=== PATIENT | female | born 1980 | race African-American/Black ===

== ENCOUNTER 2017-01-02 07:33 | Emergency (ER) | payer SELFPAY ==
[2017-01-02] MEDS ORDERED: KETOROLAC TROMETHAMINE INJ/PF 30 MG/1 ML SDV IV ONE (08:02)
[2017-01-02] MEDS ORDERED: ONDANSETRON HCL INJ/PF 4 MG/2 ML SDV IV ONE (08:02)
[2017-01-02 08:19] LABS: ABSOLUTE EOSINOPHILS # (AUTO) 0.1 10^3/uL (0.0-0.6); ABSOLUTE LYMPHOCYTES (AUTO) 2.4 10^3/uL (0.5-4.7); ABSOLUTE MONOCYTES (AUTO) 0.4 10^3/uL (0.1-1.4); BASOPHILS % (AUTO) 0.6 % (0-2); EOSINOPHILS % (AUTO) 2.1 % (0-6); HEMATOCRIT 38.6 % (36.0-47.0); HEMOGLOBIN 12.8 g/dL (12.0-15.5); HGB HCT DIFFERENCE -0.2; LYMPHOCYTES % (AUTO) 40.3 % (13-45); MEAN CORPUSCULAR HEMOGLOBIN 27.4 pg (27.0-33.4); MEAN CORPUSCULAR HGB CONC 33.2 g/dL (32.0-36.0); MEAN CORPUSCULAR VOLUME 83 fl (80-97); MONOCYTES % (AUTO) 6.3 % (3-13); RED BLOOD COUNT 4.67 10^6/uL (3.72-5.28); RED CELL DISTRIBUTION WIDTH 13.6 % (11.5-14.0); SEGMENTED NEUTROPHILS % (AUTO) 50.7 % (42-78)
[2017-01-02 08:36] LABS: ALANINE AMINOTRANSFERASE 15 U/L (9-52); ALBUMIN 4.2 g/dL (3.5-5.0); ALKALINE PHOSPHATASE 102 U/L (38-126); ANION GAP 11 (5-19); ASPARTATE AMINO TRANSFERASE 19 U/L (14-36); BILIRUBIN,TOTAL 0.4 mg/dL (0.2-1.3); BLOOD UREA NITROGEN 11 mg/dL (7-20); CARBON DIOXIDE 24 mmol/L (22-30); CHLORIDE 108 mmol/L (98-107); CREATINE KINASE 94 U/L (30-135); CREATININE RESULT 0.72 mg/dL (0.52-1.25); GLUCOSE 94 mg/dL (75-110); POTASSIUM 3.9 mmol/L (3.6-5.0); TOTAL PROTEIN 8.2 g/dL (6.3-8.2)
[2017-01-02 08:53] LABS: CREATINE KINASE MB < 0.22 ng/mL (<4.55); TROPONIN I < 0.012 ng/mL
--- NOTE | 2017-01-02 09:53 | ER Document Report ---
ED General - General Stated Complaint: CHEST PAIN TRAVEL OUTSIDE OF THE [place] IN LAST 30 DAYS: No - HPI Patient complains to provider of: left chest wall pain Notes: Chest wall pain ongoing for last 3 days. Patient states now pain to the left shoulder. Patient denies a history of trauma denies fevers chills nausea vomiting diarrhea shortness of breath. 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 Patient is aware for flu status. Patient otherwise is resting currently denies smoking drinking drugs. Patient denies any past medical history of a cardiac origin from her family. - Related Data Allergies/Adverse Reactions: Penicillins Allergy (Verified 01/02/17 11:15) Past Medical History - Social History Smoking Status: Unknown if Ever Smoked Family History: Reviewed & Not Pertinent Review of Systems - Review of Systems Constitutional: No symptoms reported EENT: No symptoms reported Cardiovascular: Chest pain Respiratory: No symptoms reported Gastrointestinal: No symptoms reported Genitourinary: No symptoms reported Female Genitourinary: No symptoms reported Musculoskeletal: No symptoms reported Skin: No symptoms reported Hematologic/Lymphatic: No symptoms reported Neurological/Psychological: No symptoms reported Physical Exam - Vital signs Vitals: Temp Pulse Resp BP Pulse Ox 98.1 F 75 16 145/94 H 99 01/02/17 07:38 01/02/17 07:38 01/02/17 07:38 01/02/17 07:38 01/02/17 07:38 Interpretation: Normal - General General appearance: Appears well, Alert - HEENT Head: Normocephalic, Atraumatic Eyes: Normal Pupils: PERRL - Respiratory Respiratory status: No respiratory distress Chest status: Tender - Palpation of the patient's chest reproduces her pain. Breath sounds: Normal Chest palpation: Normal - Cardiovascular Rhythm: Regular Heart sounds: Normal auscultation Murmur: No - Abdominal Inspection: Normal Distension: No distension Bowel sounds: Normal Tenderness: Nontender Organomegaly: No organomegaly - Back Back: Normal, Nontender - Extremities General upper extremity: Normal inspection, Nontender, Normal color, Normal ROM , Normal temperature General lower extremity: Normal inspection, Nontender, Normal color, Normal ROM , Normal temperature, Normal weight bearing. No: Annel's sign - Neurological Neuro grossly intact: Yes Cognition: Normal Orientation: AAOx4 [place] Coma Scale Eye Opening: Spontaneous [place] Coma Scale Verbal: Oriented [place] Coma Scale Motor: Obeys Commands [place] Coma Scale Total: 15 Speech: Normal Motor strength normal: LUE, RUE, LLE, RLE Sensory: Normal - Psychological Associated symptoms: Normal affect, Normal mood - Skin Skin Temperature: Warm Skin Moisture: Dry Skin Color: Normal Course - Re-evaluation Re-evalutation: 01/02/17 16:30 The patient has atypical chest pain as the patient's chest pain is not suggestive of pulmonary embolus, cardiac ischemia, aortic dissection, or other serious etiology. Given the extremely low risk of these diagnoses further testing and evaluation for these possibilities does not appear to be indicated at this time. The patient has been instructed to return if the symptoms worsen or change in any way. - Vital Signs Vital signs: Temp Pulse Resp BP Pulse Ox 98.1 F 65 16 140/88 H 100 01/02/17 07:38 01/02/17 07:47 01/02/17 11:31 01/02/17 11:31 01/02/17 11:31 - Laboratory Result Diagrams: 01/02/17 08:00 01/02/17 08:00 Laboratory results interpreted by me: 01/02/17 08:00 Chloride 108 H Discharge - Discharge Clinical Impression: Chest wall pain Condition: Good Disposition: HOME, SELF-CARE Instructions: Anti-Inflammatory Medication ([facility]), Chest Wall Pain ([facility]) Additional Instructions: Take medications as prescribed. Return to the ER symptoms worsen. Follow-up with your primary care physician. Prescriptions: Ibuprofen [Motrin 600 Mg Tablet] 600 mg PO TID #30 tablet Forms: Return to Work Referrals: VIRA ANNA MD [COMMUNITY BASED STAFF] - Follow up as needed
[2017-01-02 12:01] VITALS: BP 140/88
--- NOTE | 2017-01-02 19:34 | EKG REPORT ---
SEVERITY:- BORDERLINE ECG - SINUS RHYTHM BORDERLINE T ABNORMALITIES, ANTERIOR LEADS : Confirmed by: Jimmy Agarwal 02-Jan-2017 19:33:31
--- NOTE | 2017-01-02 19:34 | EKG REPORT ---
SEVERITY:- BORDERLINE ECG - SINUS RHYTHM BORDERLINE T ABNORMALITIES, ANTERIOR LEADS : Confirmed by: Jimmy Agarwal 02-Jan-2017 19:33:35
== END 2017-01-02 12:09 | disposition home or self-care (01) ==
LOC: ER 07:33
DX: R07.89 Other chest pain (principal); Z88.0 Allergy status to penicillin
CPT/HCPCS: 93005; 99285; 96374; 96375; 36415; 82553; 82550; 84702; 85025; 80053; 84484; 71020; 93010; J1885; J2405

== ENCOUNTER 2017-02-11 21:03 | Emergency (ER) | payer SELFPAY ==
[2017-02-12] MEDS ORDERED: ASPIRIN 81 MG TABLET, CHEWABLE PO ONE (02:42)
[2017-02-12] MEDS ORDERED: CYCLOBENZAPRINE HCL 10 MG TABLET PO ONE (03:24)
[2017-02-12] MEDS ORDERED: KETOROLAC TROMETHAMINE 60 MG/2 ML SDV IM ONE (03:24)
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
[2017-02-12 03:48] LABS: ABSOLUTE EOSINOPHILS # (AUTO) 0.2 10^3/uL (0.0-0.6); ABSOLUTE LYMPHOCYTES (AUTO) 2.7 10^3/uL (0.5-4.7); ABSOLUTE MONOCYTES (AUTO) 0.4 10^3/uL (0.1-1.4); ABSOLUTE NEUT (AUTO) 1.7 10^3/uL (1.7-8.2); BASOPHILS % (AUTO) 0.5 % (0-2); EOSINOPHILS % (AUTO) 3.3 % (0-6); HEMATOCRIT 37.7 % (36.0-47.0); HEMOGLOBIN 12.8 g/dL (12.0-15.5); HGB HCT DIFFERENCE 0.7; LYMPHOCYTES % (AUTO) 53.4 % (13-45); MEAN CORPUSCULAR HEMOGLOBIN 27.5 pg (27.0-33.4); MEAN CORPUSCULAR VOLUME 81 fl (80-97); MONOCYTES % (AUTO) 8.7 % (3-13); RED BLOOD COUNT 4.65 10^6/uL (3.72-5.28); RED CELL DISTRIBUTION WIDTH 14.8 % (11.5-14.0); SEGMENTED NEUTROPHILS % (AUTO) 34.1 % (42-78); WHITE BLOOD COUNT 5.1 10^3/uL (4.0-10.5)
[2017-02-12 04:00] LABS: ALANINE AMINOTRANSFERASE 25 U/L (9-52); ALBUMIN 4.6 g/dL (3.5-5.0); ALKALINE PHOSPHATASE 104 U/L (38-126); ANION GAP 15 (5-19); ASPARTATE AMINO TRANSFERASE 18 U/L (14-36); BILIRUBIN,DIRECT 0.3 mg/dL (0.0-0.4); BILIRUBIN,TOTAL 0.6 mg/dL (0.2-1.3); BLOOD UREA NITROGEN 12 mg/dL (7-20); CALCIUM 9.4 mg/dL (8.4-10.2); CARBON DIOXIDE 24 mmol/L (22-30); CHLORIDE 108 mmol/L (98-107); CREATINE KINASE 105 U/L (30-135); CREATININE RESULT 0.65 mg/dL (0.52-1.25); GLUCOSE 93 mg/dL (75-110); POTASSIUM 3.7 mmol/L (3.6-5.0); SODIUM 146.9 mmol/L (137-145); TOTAL PROTEIN 8.7 g/dL (6.3-8.2)
[2017-02-12 04:14] LABS: CREATINE KINASE MB < 0.22 ng/mL (<4.55); TROPONIN I < 0.012 ng/mL
[2017-02-12 05:30] VITALS: BP 131/85
--- NOTE | 2017-02-12 07:35 | EKG REPORT ---
SEVERITY:- NORMAL ECG - SINUS RHYTHM : Confirmed by: Ayesha Cortez MD 12-Feb-2017 07:34:42
--- NOTE | 2017-02-12 20:03 | EKG REPORT ---
SEVERITY:- ABNORMAL ECG - SINUS TACHYCARDIA ST ELEVATION SUGGESTS PERICARDITIS : Confirmed by: Ayesha Cortez MD 12-Feb-2017 20:02:01
== END 2017-02-12 05:30 | disposition home or self-care (01) ==
LOC: ER 21:03
DX: R07.89 Other chest pain (principal); R20.0 Anesthesia of skin
CPT/HCPCS: 93005; 99285; 96372; 36415; 82553; 82550; 85025; 80053; 84484; 85379; 71020; 93010; J1885

== ENCOUNTER 2017-10-16 14:45 | Emergency (ER) | payer SELFPAY ==
[2017-10-16] MEDS ORDERED: KETOROLAC TROMETHAMINE 60 MG/2 ML SDV IM ONE (15:35)
[2017-10-16] MEDS ORDERED: ONDANSETRON 4 MG TAB.RAPDIS PO ONE (15:35)
--- NOTE | 2017-10-16 15:56 | ER Document Report ---
ED Medical Screen (RME) - General Mode of Arrival: Ambulatory Information source: Patient TRAVEL OUTSIDE OF THE [place] IN LAST 30 DAYS: No - General Chief Complaint: Flank Pain Stated Complaint: RIGHT SIDE PAIN Time Seen by Provider: 10/16/17 15:31 Notes: Patient is a 37 year old female presenting to the emergency department complaining of right sided flank pain. Patient also states that when she sits for prolonged periods of time, her feet go numb when trying to stand. Patient assoaciated symptoms include headaches, urine frequency and urgency, nauseam and cough. Patient denies hematuria or fevers. I have greeted and performed a rapid initial assessment of this patient. A comprehensive ED assessment and evaluation of the patient, analysis of test results and completion of the medical decision making process will be conducted by additional ED providers. (ZION AMAYA) - Related Data Allergies/Adverse Reactions: Penicillins Allergy (Verified 10/16/17 14:48) Past Medical History - Social History Chew tobacco use (# tins/day): No Frequency of alcohol use: None Drug Abuse: None - Past Medical History Cardiac Medical History: Reports: Hx Hypertension Renal/ Medical History: Denies: Hx Peritoneal Dialysis Past Surgical History: Reports: Hx Cholecystectomy - Immunizations Hx Diphtheria, Pertussis, Tetanus Vaccination: Yes Physical Exam - Vital signs Vitals: Temp Pulse Resp BP Pulse Ox 98.9 F 80 16 149/83 H 100 10/16/17 14:50 10/16/17 14:50 10/16/17 14:50 10/16/17 14:50 10/16/17 14:50 - Notes Notes: GENERAL: Alert, interacts well. No acute distress. LUNGS: Clear to auscultation bilaterally, no wheezes, rales, or rhonchi. No respiratory distress. ABDOMEN: Soft, non-tender. Non-distended. Bowel sounds present in all 4 quadrants. BACK: No evidence of rash (ZION AMAYA) - Vital Signs Vital signs: Temp Pulse Resp BP Pulse Ox 98.9 F 80 16 149/83 H 100 10/16/17 14:50 10/16/17 14:50 10/16/17 14:50 10/16/17 14:50 10/16/17 14:50 Scribe Documentation - Scribe Written by Scribe:: Dustin Willams, 10/16/2017 15:58 acting as scribe for :: Julio
--- NOTE | 2017-10-16 16:45 | ER Document Report ---
ED GI/ - General Chief Complaint: Flank Pain Stated Complaint: RIGHT SIDE PAIN Time Seen by Provider: 10/16/17 15:31 Mode of Arrival: Ambulatory Notes: 37 yo female with right flank pain wose with movement and voiding small amounts. No hx kidney stones. No fever. No n/v/d. TRAVEL OUTSIDE OF THE [place] IN LAST 30 DAYS: No - Related Data Allergies/Adverse Reactions: Penicillins Allergy (Verified 10/16/17 14:48) Past Medical History - General Information source: Patient - Social History Smoking Status: Never Smoker Chew tobacco use (# tins/day): No Frequency of alcohol use: None Drug Abuse: None Family History: Reviewed & Not Pertinent Patient has suicidal ideation: No Patient has homicidal ideation: No - Past Medical History Cardiac Medical History: Reports: Hx Hypertension Renal/ Medical History: Denies: Hx Peritoneal Dialysis Past Surgical History: Reports: Hx Cholecystectomy - Immunizations Hx Diphtheria, Pertussis, Tetanus Vaccination: Yes Review of Systems - Review of Systems Constitutional: No symptoms reported EENT: No symptoms reported Cardiovascular: No symptoms reported Respiratory: No symptoms reported Gastrointestinal: No symptoms reported Genitourinary: No symptoms reported Female Genitourinary: No symptoms reported Musculoskeletal: See HPI Skin: No symptoms reported Hematologic/Lymphatic: No symptoms reported Neurological/Psychological: No symptoms reported Physical Exam - Vital signs Vitals: Temp Pulse Resp BP Pulse Ox 98.9 F 80 16 149/83 H 100 10/16/17 14:50 10/16/17 14:50 10/16/17 14:50 10/16/17 14:50 10/16/17 14:50 Interpretation: Normal - General General appearance: Appears well, Alert - HEENT Head: Normocephalic, Atraumatic Eyes: Normal Pupils: PERRL Neck: Supple - Respiratory Respiratory status: No respiratory distress Chest status: Nontender Breath sounds: Normal Chest palpation: Normal - Cardiovascular Rhythm: Regular Heart sounds: Normal auscultation Murmur: No - Abdominal Inspection: Normal Distension: No distension Bowel sounds: Normal Tenderness: Nontender Organomegaly: No organomegaly - Back Back: Normal, Tender - right lateral lumbar muscles, no CVAT, Other - no rash. No: CVA tenderness - Extremities General upper extremity: Normal inspection, Nontender, Normal color, Normal ROM , Normal temperature General lower extremity: Normal inspection, Nontender, Normal color, Normal ROM , Normal temperature, Normal weight bearing. No: Annel's sign - Neurological Neuro grossly intact: Yes Cognition: Normal Orientation: AAOx4 [place] Coma Scale Eye Opening: Spontaneous [place] Coma Scale Verbal: Oriented [place] Coma Scale Motor: Obeys Commands [place] Coma Scale Total: 15 Speech: Normal Motor strength normal: LUE, RUE, LLE, RLE Sensory: Normal - Psychological Associated symptoms: Normal affect, Normal mood - Skin Skin Temperature: Warm Skin Moisture: Dry Skin Color: Normal Course - Re-evaluation Re-evalutation: 10/16/17 18:47 CT scan is negative, 1+ bacteria in the urine, urine culture pending, not , diagnosis right muscular flank pain and possible urinary tract infection. She is happy with plan and understands instructions. - Vital Signs Vital signs: Temp Pulse Resp BP Pulse Ox 98.0 F 61 18 135/87 H 99 10/16/17 19:08 10/16/17 19:08 10/16/17 19:08 10/16/17 19:08 10/16/17 19:08 - Laboratory Result Diagrams: 10/16/17 17:00 10/16/17 17:00 Laboratory results interpreted by me: 10/16/17 10/16/17 10/16/17 16:20 17:00 17:00 RDW 14.9 H Sodium 145.5 H Chloride 110 H Urine Blood SMALL H Discharge - Discharge Clinical Impression: Muscular right flank pain, Low back pain, Possible urinary tract infection Condition: Good Disposition: HOME, SELF-CARE Instructions: Anti-Inflammatory Medication ([facility]), Low Back Pain ([facility]), Muscle Relaxers ([facility]), Nitrofurantoin ([facility]), Urinary Tract Infection ([facility]), Warm Packs ([facility]) Additional Instructions: warm compress urine culture is pending to er if worse see your in [place] for recheck Prescriptions: Cyclobenzaprine HCl [Flexeril 10 Mg Tablet] 10 mg PO TIDP PRN #20 tablet PRN Reason: Naproxen 500 mg PO BIDP PRN #30 tablet PRN Reason: Nitrofurantoin/Nitrofuran Mac [Macrobid 100 mg Capsule] 100 mg PO BID #14 capsule Forms: Return to Work
[2017-10-16 17:19] LABS: ABSOLUTE BASOPHILS # (AUTO) 0.1 10^3/uL (0.0-0.2); ABSOLUTE EOSINOPHILS # (AUTO) 0.2 10^3/uL (0.0-0.6); ABSOLUTE LYMPHOCYTES (AUTO) 2.9 10^3/uL (0.5-4.7); ABSOLUTE MONOCYTES (AUTO) 0.5 10^3/uL (0.1-1.4); ABSOLUTE NEUT (AUTO) 3.6 10^3/uL (1.7-8.2); BASOPHILS % (AUTO) 1.5 % (0-2); EOSINOPHILS % (AUTO) 2.2 % (0-6); HEMATOCRIT 39.3 % (36.0-47.0); HEMOGLOBIN 12.9 g/dL (12.0-15.5); HGB HCT DIFFERENCE -0.6; LYMPHOCYTES % (AUTO) 39.5 % (13-45); MEAN CORPUSCULAR HEMOGLOBIN 27.1 pg (27.0-33.4); MEAN CORPUSCULAR HGB CONC 32.8 g/dL (32.0-36.0); MEAN CORPUSCULAR VOLUME 83 fl (80-97); MONOCYTES % (AUTO) 6.7 % (3-13); RED BLOOD COUNT 4.75 10^6/uL (3.72-5.28); RED CELL DISTRIBUTION WIDTH 14.9 % (11.5-14.0); SEGMENTED NEUTROPHILS % (AUTO) 50.1 % (42-78); WHITE BLOOD COUNT 7.2 10^3/uL (4.0-10.5)
[2017-10-16 17:26] LABS: APPEARANCE,URINE SLIGHTLY-CLOUDY; BILIRUBIN,URINE NEGATIVE (NEGATIVE); GLUCOSE, URINE NEGATIVE (NEGATIVE); KETONES,URINE NEGATIVE (NEGATIVE); LEUKOCYTE ESTERASE,URINE NEGATIVE (NEGATIVE); NITRITE,URINE NEGATIVE (NEGATIVE); PROTEIN,URINE NEGATIVE (NEGATIVE); URINE SPECIFIC GRAVITY 1.017; UROBILINOGEN,URINE NEGATIVE mg/dL (<2.0)
[2017-10-16 17:37] LABS: ALANINE AMINOTRANSFERASE 11 U/L (9-52); ALBUMIN 4.4 g/dL (3.5-5.0); ALKALINE PHOSPHATASE 96 U/L (38-126); ANION GAP 13 (5-19); ASPARTATE AMINO TRANSFERASE 15 U/L (14-36); BILIRUBIN,DIRECT 0.3 mg/dL (0.0-0.4); BILIRUBIN,TOTAL 0.5 mg/dL (0.2-1.3); BLOOD UREA NITROGEN 10 mg/dL (7-20); CALCIUM 9.7 mg/dL (8.4-10.2); CARBON DIOXIDE 23 mmol/L (22-30); CHLORIDE 110 mmol/L (98-107); CREATININE RESULT 0.72 mg/dL (0.52-1.25); GLUCOSE 78 mg/dL (75-110); LIPASE 45.3 U/L (23-300); POTASSIUM 3.8 mmol/L (3.6-5.0); SODIUM 145.5 mmol/L (137-145)
--- NOTE | 2017-10-16 18:32 | RADIOLOGY REPORT (SQ) ---
EXAM DESCRIPTION: CT LTD RENAL STONE PROTOCOL ON COMPLETED DATE/TIME: 10/16/2017 6:20 pm REASON FOR STUDY: right flank pain COMPARISON: None. TECHNIQUE: CT scan of the abdomen and pelvis performed without intravenous or oral contrast. Images reviewed with lung, soft tissue, and bone windows. Reconstructed coronal and sagittal MPR images revi ewed. All images stored on PACS. All CT scanners at this facility use dose modulation, iterative reconstruction, and/or weight based d osing when appropriate to reduce radiation dose to as low as reasonably achievable (ALARA). [facility]: Dose Right [facility]: CareDose [facility]: Dose Right [facility]: Teradose 4D [facility]: [employer] RADIATION DOSE: CT Rad equipment meets quality standard of care and radiation dose reduction techniq ues were employed. CTDIvol: 19.2 mGy. DLP: 1044 mGy-cm.mGy. LIMITATIONS: None. FINDINGS: LOWER CHEST: Minimal linear subsegmental atelectasis in each lower lobe. No consolidation or pleural effusion. NON-CONTRASTED LIVER, SPLEEN, ADRENALS: Evaluation limited by lack of IV contrast. No identified sign ificant masses. PANCREAS: No masses. No peripancreatic inflammatory changes. GALLBLADDER: Surgically absent. RIGHT KIDNEY AND URETER: No suspicious masses. Assessment limited by lack of IV contrast. No signif icant calcifications. No hydronephrosis or hydroureter. LEFT KIDNEY AND URETER: No suspicious masses. Lower pole cyst. Assessment limited by lack of IV con trast. No significant calcifications. No hydronephrosis or hydroureter. AORTA AND RETROPERITONEUM: No aneurysm. No retroperitoneal masses or adenopathy. BOWEL AND PERITONEAL CAVITY: No obvious masses or inflammatory changes. No free fluid. APPENDIX: Normal. PELVIS, BLADDER, AND ABDOMINAL WALL:No abnormal masses. No free fluid. Bladder normal. BONES: No significant findings. OTHER: No other significant finding. IMPRESSION: NO ACUTE PROCESS IN THE ABDOMEN OR PELVIS. COMMENT: Quality ID # [id number]: Final reports with documentation of one or more dose reduction techniques (e.g., Automated exposure control, adjustment of the mA and/or kV according to patient size, use of iterative reconstruction technique) TECHNICAL DOCUMENTATION: JOB ID: [id number] [place]-72 2010 [employer]- All Rights Reserved
[2017-10-16] MEDS ORDERED: NITROFURANTOIN MONOHYD/M-CRYST 100 MG CAPSULE PO ONE (18:48)
[2017-10-16 19:08] VITALS: BP 135/87
== END 2017-10-16 19:08 | disposition home or self-care (01) ==
LOC: ER 14:45
DX: M54.5 Low back pain (principal); R10.9 Unspecified abdominal pain; R33.9 Retention of urine, unspecified
CPT/HCPCS: 99284; 96372; 36415; 87086; 83690; 84703; 85025; 80053; 81001; 76380; J1885; S0119; J8499

== ENCOUNTER → 2018-05-03 | Outpatient (CLI) | payer MEDICAID ==
[~2018-05-03] MED LIST: LACTATED RINGERS 1000 ML IV PRN; LIDOCAINE 0.5% INJ-PF (5 MG/ML) 50 ML SDV SUBCUT PRN
[2018-05-03 09:55] LABS: ABSOLUTE EOSINOPHILS # (AUTO) 0.1 10^3/uL (0.0-0.6); ABSOLUTE LYMPHOCYTES (AUTO) 2.1 10^3/uL (0.5-4.7); ABSOLUTE MONOCYTES (AUTO) 0.3 10^3/uL (0.1-1.4); ABSOLUTE NEUT (AUTO) 1.9 10^3/uL (1.7-8.2); BASOPHILS % (AUTO) 0.8 % (0-2); EOSINOPHILS % (AUTO) 2.3 % (0-6); HEMATOCRIT 35.6 % (36.0-47.0); HEMOGLOBIN 12.2 g/dL (12.0-15.5); LYMPHOCYTES % (AUTO) 46.3 % (13-45); MEAN CORPUSCULAR HEMOGLOBIN 28.4 pg (27.0-33.4); MEAN CORPUSCULAR HGB CONC 34.3 g/dL (32.0-36.0); MEAN CORPUSCULAR VOLUME 83 fl (80-97); MONOCYTES % (AUTO) 7.6 % (3-13); PLATELET COUNT 283 10^3/uL (150-450); RED CELL DISTRIBUTION WIDTH 14.9 % (11.5-14.0); TOTAL CELLS COUNTED % (AUTO) 100 %; WHITE BLOOD COUNT 4.5 10^3/uL (4.0-10.5)
[2018-05-03 10:06] LABS: APPEARANCE,URINE SLIGHTLY-CLOUDY; BILIRUBIN,URINE NEGATIVE (NEGATIVE); COLOR,URINE YELLOW; GLUCOSE, URINE NEGATIVE (NEGATIVE); KETONES,URINE NEGATIVE (NEGATIVE); LEUKOCYTE ESTERASE,URINE NEGATIVE (NEGATIVE); NITRITE,URINE NEGATIVE (NEGATIVE); PROTEIN,URINE NEGATIVE (NEGATIVE); URINE SPECIFIC GRAVITY 1.017; UROBILINOGEN,URINE NEGATIVE mg/dL (<2.0)
[2018-05-03 10:36] LABS: URINE AMPHETAMINES SCREEN NEGATIVE; URINE BARBITURATES SCREEN NEGATIVE; URINE BENZODIAZEPINES SCREEN NEGATIVE; URINE COCAINE SCREEN NEGATIVE; URINE MARIJUANA (THC) SCREEN NEGATIVE; URINE METHADONE SCREEN NEGATIVE; URINE PHENCYCLIDINE SCREEN NEGATIVE
== END ==
LOC: OD 09:23 → EDSTATUS 05-07 13:00
PROVIDERS: ATTEND Obstetrics & Gynecology Gynecology
DX: Z01.812 Encounter for preprocedural laboratory examination (principal)
CPT/HCPCS: 80307; 81005; 85025

== ENCOUNTER 2018-08-05 10:07 | Day surgery (SDC) | payer MEDICAID ==
--- NOTE | 2018-08-04 10:12 | EKG REPORT ---
SEVERITY:- NORMAL ECG - SINUS RHYTHM : Confirmed by: Ayesha Cortez MD 04-Aug-2018 10:11:21
[2018-08-04 10:17] LABS: ABSOLUTE EOSINOPHILS # (AUTO) 0.1 10^3/uL (0.0-0.6); ABSOLUTE LYMPHOCYTES (AUTO) 2.2 10^3/uL (0.5-4.7); ABSOLUTE MONOCYTES (AUTO) 0.4 10^3/uL (0.1-1.4); ABSOLUTE NEUT (AUTO) 3.4 10^3/uL (1.7-8.2); BASOPHILS % (AUTO) 0.4 % (0-2); EOSINOPHILS % (AUTO) 1.8 % (0-6); HEMATOCRIT 35.9 % (36.0-47.0); HEMOGLOBIN 12.3 g/dL (12.0-15.5); LYMPHOCYTES % (AUTO) 36.2 % (13-45); MEAN CORPUSCULAR HEMOGLOBIN 28.1 pg (27.0-33.4); MEAN CORPUSCULAR HGB CONC 34.2 g/dL (32.0-36.0); MEAN CORPUSCULAR VOLUME 82 fl (80-97); MONOCYTES % (AUTO) 6.2 % (3-13); PLATELET COUNT 304 10^3/uL (150-450); RED BLOOD COUNT 4.38 10^6/uL (3.72-5.28); RED CELL DISTRIBUTION WIDTH 14.8 % (11.5-14.0); SEGMENTED NEUTROPHILS % (AUTO) 55.4 % (42-78); TOTAL CELLS COUNTED % (AUTO) 100 %; WHITE BLOOD COUNT 6.2 10^3/uL (4.0-10.5)
[2018-08-04 10:20] LABS: APPEARANCE,URINE CLEAR; BILIRUBIN,URINE NEGATIVE (NEGATIVE); COLOR,URINE YELLOW; GLUCOSE, URINE NEGATIVE (NEGATIVE); KETONES,URINE NEGATIVE (NEGATIVE); LEUKOCYTE ESTERASE,URINE NEGATIVE (NEGATIVE); NITRITE,URINE NEGATIVE (NEGATIVE); PROTEIN,URINE NEGATIVE (NEGATIVE); UROBILINOGEN,URINE NEGATIVE mg/dL (<2.0)
[2018-08-04 10:25] LABS: URINE SPECIFIC GRAVITY 1.023
[2018-08-04 10:58] LABS: URINE AMPHETAMINES SCREEN NEGATIVE; URINE BARBITURATES SCREEN NEGATIVE; URINE BENZODIAZEPINES SCREEN NEGATIVE; URINE COCAINE SCREEN NEGATIVE; URINE MARIJUANA (THC) SCREEN NEGATIVE; URINE METHADONE SCREEN NEGATIVE; URINE PHENCYCLIDINE SCREEN NEGATIVE
[~2018-08-05 10:07] MED LIST changes: +ACETAMINOPHEN 1,000 MG/100 ML RTUPB IV ONE; +BUPIVACAINE HCL 0.5 % INJ/PF 30 ML SDV ONE; +DEXAMETHASONE SOD PHOSPHATE INJ 4 MG/1 ML VIAL ONE; +DEXMEDETOMIDINE INJ 80 MCG/20 ML VIAL IV ONE; +EPHEDRINE SULFATE INJ 50 MG/1 ML AMPULE ONE; +FENTANYL CITRATE INJ/PF 100 MCG/2 ML AMPUL ONE; +GLYCOPYRROLATE 1 MG/5 ML SYRINGE ONE; +KETOROLAC TROMETHAMINE 60 MG/2 ML SDV ONE; +LIDOCAINE 2% INJ-PF (20 MG/ML) 10 ML AMPUL ONE; +METOCLOPRAMIDE HCL INJ/PF 10 MG/2 ML SDV ONE; +MIDAZOLAM 2 MG/2 ML INJ ONE; +NEOSTIGMINE METHYLSULFATE 10 MG/10 ML VIAL ONE; +ONDANSETRON HCL INJ/PF 4 MG/2 ML SDV ONE; +PROPOFOL INJ 200 MG/20 ML VIAL IV ONE; +ROCURONIUM BROMIDE INJ 50 MG/5 ML VIAL IV ONE; +SUCCINYLCHOLINE CHLORIDE INJ 200 MG/10 ML VIAL ONE
[2018-08-05] MEDS ORDERED: ONDANSETRON HCL INJ/PF 4 MG/2 ML SDV IV PRN (12:28)
[2018-08-05] MEDS ORDERED: MEPERIDINE HCL/PF INJ 25 MG/1 ML DISP.SYRIN IV PRN (12:28)
[2018-08-05] MEDS ORDERED: PROMETHAZINE HCL INJ 25 MG/1 ML VIAL IV PRN ×2 (12:28)
[2018-08-05] MEDS ORDERED: MORPHINE SULFATE 10 MG/ML INJ IV PRN (12:28)
[2018-08-05] MEDS ORDERED: FENTANYL CITRATE INJ/PF 100 MCG/2 ML AMPUL IV PRN ×3 (12:28)
[2018-08-05] MEDS ORDERED: DIPHENHYDRAMINE HCL 50 MG/ML VIAL IV PRN (12:28)
--- NOTE | 2018-08-05 12:51 | OPERATIVE REPORT E ---
Operative Report NAME: MICHELLE ARREGUIN : 1980 AGE: 38Y DATE OF SURGERY: 08/05/2018 ROOM: PREOPERATIVE DIAGNOSIS: Desires sterilization. POSTOPERATIVE DIAGNOSIS: Desires sterilization. OPERATION: Bilateral tubal occlusion using Filshie clips. SURGEON: Merrick BERNSTEIN M.D. ANESTHESIA: General. ESTIMATED BLOOD LOSS: Negligible. TISSUE REMOVED: None. PROCEDURE: The patient was placed in a dorsal lithotomy position, prepped and draped in usual sterile fashion. *------* single-tooth tenaculum, Hulka tenaculum placed, single-tooth tenaculum was removed. The bladder was drained with a catheter. Attention was turned to the abdomen where a subumbilical midline incision was made. Trocar was introduced with insufflation of the abdomen and introduction of a laparoscope with visualization of the tubes, uterus, and ovaries. The right fallopian tube was clipped in the proximal portion and then a second clip was applied proximal to that because the first clip did not appear to have an adequate purchase of tissue. On the left 2 clips were applied and both had adequate tissue purchase, as was the second that was placed on the right. No other abnormalities were noted. The abdomen was deflated after removing the instruments. The trocar sleeve was removed. The incision was closed with 0 Vicryl at the fascia and 4-0 Vicryl subcu. The patient tolerated the procedure well and was taken to recovery in good condition. DICTATING PHYSICIAN: Merrick BERNSTEIN M.D. [id number] Y#: [id number] ID: [id number] JOB#: [id number] ACCT: [id number] cc:Merrick BERNSTEIN M.D. >
[2018-08-05] MEDS ORDERED: FENTANYL CITRATE INJ/PF 100 MCG/2 ML AMPUL ONE (13:14)
[2018-08-05] MEDS ORDERED: OXYCODONE-ACETAMINOPHEN 5-325 MG TABLET PO PRN (13:30)
[2018-08-05] MEDS ORDERED: IBUPROFEN 800 MG TABLET PO SCH (14:00)
[2018-08-05] MEDS ORDERED: OXYCODONE-ACETAMINOPHEN 5-325 MG TABLET ONE (14:03)
[2018-08-05] MEDS ORDERED: IBUPROFEN 800 MG TABLET ONE (14:03)
[2018-08-05] MEDS ORDERED: ONDANSETRON HCL INJ/PF 4 MG/2 ML SDV ONE (14:09)
[2018-08-05 16:31] VITALS: BP 138/89
== END 2018-08-05 15:15 | disposition home or self-care (01) ==
LOC: OROUT 10:07
PROVIDERS: ATTEND Obstetrics & Gynecology Gynecology
DX: Z30.2 Encounter for sterilization (principal); I10 Essential (primary) hypertension; E66.9 Obesity, unspecified; Z68.41 Body mass index [BMI] 40.0-44.9, adult; Z88.0 Allergy status to penicillin; Z79.899 Other long term (current) drug therapy
CPT/HCPCS: 93005; 86900; 86901; 36415; 86850; 85025; 81025; 81001; 80307; 93010; 58671; J2250; J3490 ×6; J1100; J1885; J3010; J2765; J0330; J2405; J2704; J0131; 851

== ENCOUNTER 2018-10-04 08:37 | Emergency (ER) | payer BC, MEDICAID, OTHER ==
--- NOTE | 2018-10-04 09:33 | ER Document Report ---
ED General - General Chief Complaint: Chest Pain Stated Complaint: CHEST PAIN ND SORE THROAT Time Seen by Provider: 10/04/18 09:10 TRAVEL OUTSIDE OF THE [place] IN LAST 30 DAYS: No - HPI Notes: Patient is a 38-year-old female who presents to the ED for multiple complaints which most of them have been chronic over the last 2-3 years. Patient states that she has had left-sided chest pain constantly over the last 4 days with occasional radiation towards her left arm without any precipitating event that she is aware of. Patient states that she is unaware of anything that worsens or improves her pain. She is able to ambulate without any worsening discomfort or dyspnea on exertion/shortness of breath. She has no significant cardiopulmonary medical history. Denies any prolonged immobilization, distance travel, recent surgery/trauma, personal cancer history, hormone use, smoking, or previous DVT/PE. Pt has also had urinary frequency over the last couple weeks with voiding small amounts. No burning. No vaginal discharge/odor/bleeding. Patient also notes cold sores to her upper lip over the last 4-5 days with an occasional sore throat, that have been improving and is not as concerned about this issue at this time. Patient states that she has had intermittent numbness and tingling to her legs bilaterally primarily in her feet. Patient states that she has been evaluated previously by her PCM and was told that she needed to lose weight. Patient states that she will have occasional back pain, and does not know if it is related to the symptoms in her feet, she is not aware if they occur at the same time or not. Denies any IV drug abuse or previous history of spinal abscess. She is eating and drinking without difficulty. She is urinating normally and having normal bowel movements. Denies any headache, fever, neck pain, changes in vision/speech/mentation/ hearing, URI, palpitations, syncope, cough, shortness of breath, wheeze, dyspnea , abdominal pain, nausea/vomiting/diarrhea, urinary retention, hematuria, loss of control of bowel or bladder, numbness/tingling, saddle anesthesia, muscle paralysis/weakness, or rash. - Related Data Allergies/Adverse Reactions: Penicillins Allergy (Verified 10/04/18 08:39) Past Medical History - Social History Smoking Status: Never Smoker Family History: Reviewed & Not Pertinent - Past Medical History Cardiac Medical History: Denies: Hx Coronary Artery Disease, Hx Heart Attack, Hx Hypertension Pulmonary Medical History: Denies: Hx Asthma, Hx Bronchitis, Hx COPD, Hx Pneumonia Neurological Medical History: Denies: Hx Cerebrovascular Accident, Hx Seizures Renal/ Medical History: Denies: Hx Peritoneal Dialysis Musculoskeletal Medical History: Denies Hx Arthritis Past Surgical History: Reports: Hx Cholecystectomy - Immunizations Hx Diphtheria, Pertussis, Tetanus Vaccination: Yes Review of Systems - Review of Systems -: Yes All other systems reviewed and negative Physical Exam - Vital signs Vitals: Temp Pulse Resp BP Pulse Ox 98.4 F 75 20 140/90 H 99 10/04/18 08:56 10/04/18 08:56 10/04/18 08:56 10/04/18 08:56 10/04/18 08:56 - Notes Notes: PHYSICAL EXAMINATION: GENERAL: Well-appearing, well-nourished and in no acute distress. A&Ox4. Answers questions appropriately. HEAD: Atraumatic, normocephalic. EYES: Pupils equal round and reactive to light, extraocular movements intact, sclera anicteric, conjunctiva are normal. ENT: EAC clear b/l. TM's intact b/l without erythema, fluid, or perforation. Nares patent and with clear discharge. oropharynx mild erythema without exudates. No tonsilar hypertrophy without erythema or exudate. No palatine shift. Uvula midline. No tongue protrusion. No drooling, hoarseness, or airway compromise. Moist mucous membranes. No sinus tenderness. Old cold sores noted to upper lips; healing. NECK: Normal range of motion, supple without lymphadenopathy Chest: + reproducible tenderness to palpation of the Lt pectoral area and reproducible with arm extension/abduction. LUNGS: Breath sounds clear to auscultation bilaterally and equal. No wheezes rales or rhonchi. HEART: Regular rate and rhythm without murmurs, rubs, gallops. ABDOMEN: Soft, nontender, nondistended abdomen. No guarding, no rebound. No masses appreciated. Normal bowel sounds present. No CVA tenderness bilaterally. Musculoskeletal: FROM to passive/active. Strength 5+/5. Annel neg. No asymmetry to LE's. Back: FROM to passive/active. Strength 5+/5. No vertebral point tenderness, stepoffs, or deformities. No other bony tenderness, erythema, swelling, or ecchymosis. SLR negative b/l. No SI jt tenderness. No foot drop Extremities: No cyanosis, clubbing, or edema b/l. Peripheral pulses 2+. Capillary refill less than 3 seconds. NEUROLOGICAL: Normal speech, normal gait. PSYCH: Normal mood, normal affect. SKIN: Warm, Dry, normal turgor, no rashes or lesions noted. Course - Re-evaluation Re-evalutation: 10/04/18 12:24 Patient is an afebrile, well-hydrated 38-year-old female who presents to the ED with chest wall pain and other nonspecific chronic symptoms (x2-3yrs) w/o obvious emergent etiologies. Vitals are acceptable without any significant tachycardia, tachypnea, or hypoxia. PE is otherwise unremarkable aside from the reproducible chest wall tenderness by palpation and ROM. Patient is nontoxic-appearing and is tolerating p.o. without any difficulties. Pt is currently asymptomatic. CBC, CMP, EKG/cardiac enzyme, chest x-ray are all unremarkable for any acute pathology. Patient has a heart score of 1, Wells score of 0, and is PERC negative. Patient does not have any dyspnea or shortness of breath. Patient's presentation and symptomatology creates low suspicion for ACS, PE, pneumothorax, pericarditis, dissection, respiratory compromise, severe dehydration, sepsis, meningitis, cauda equina, disc herniation causing severe spinal stenosis, spinal abscess, acute intracranial pathology, or other systemic emergent condition at this time. Patient is aware that this condition can change from initial presentation and she needs to monitor symptoms closely and seek medical attention for any acute changes. rx for naproxen. Recommend conservative measures for symptoms. Recheck with your PCM in 2-3 days. Return to the ED with any worsening/concerning symptoms otherwise as reviewed in discharge. Patient is in agreement. - Vital Signs Vital signs: Temp Pulse Resp BP Pulse Ox 98.4 F 75 13 145/100 H 100 10/04/18 08:56 10/04/18 08:56 10/04/18 12:01 10/04/18 12:01 10/04/18 12:01 - Laboratory Result Diagrams: 10/04/18 10:02 10/04/18 10:02 Laboratory results interpreted by me: 10/04/18 10/04/18 10/04/18 10:02 10:02 10:02 RDW 15.5 H Sodium 150.1 H Chloride 114 H Carbon Dioxide 21 L ALT < 6 L Total Protein 9.1 H Urine Protein 100 H Urine Blood LARGE H Ur Leukocyte Esterase TRACE H Discharge - Discharge Clinical Impression: Chest wall pain, Dysuria, Numbness and tingling of both feet Condition: Stable Disposition: HOME, SELF-CARE Instructions: Chest Wall Pain ([facility]) Additional Instructions: Maintain adequate fluid and food intake Take home medications as directed Low sodium/fat diet Exercise regularly Weight control Monitor blood pressure daily and keep a log Monitor symptoms for any acute changes Recheck with your PCM in 2-3 days Consider a follow-up with cardiology Return to the ED with any worsening symptoms and/or development of fever, headache, chest pain, palpitations, syncope, shortness of breath, trouble breathing, abdominal pain, n/v/d, blood in stool/urine, loss of control of bowel /bladder, urinary retention, muscle weakness/paralysis, numbness/tingling, or other worsening symptoms that are concerning to you. Prescriptions: Naproxen 500 mg PO BID #6 tablet Forms: Elevated Blood Pressure Referrals: LUCIANO MONIQUE NP [NURSE PRACTITIONER] - 10/06/18 OZIEL GOMEZ MD [ACTIVE STAFF] - Follow up as needed
--- NOTE | 2018-10-04 09:44 | RADIOLOGY REPORT (SQ) ---
EXAM DESCRIPTION: CHEST SINGLE VIEW COMPLETED DATE/TIME: 10/04/2018 9:36 am REASON FOR STUDY: CP COMPARISON: 02/12/2017 EXAM PARAMETERS: NUMBER OF VIEWS: One view. TECHNIQUE: Single frontal radiographic view of the chest acquired. RADIATION DOSE: NA LIMITATIONS: None. FINDINGS: LUNGS AND PLEURA: No opacities, masses or pneumothorax. No pleural effusion. MEDIASTINUM AND HILAR STRUCTURES: No masses. Contour normal. HEART AND VASCULAR STRUCTURES: Heart normal in size. Normal vasculature. BONES: No acute findings. HARDWARE: None in the chest. OTHER: No other significant finding. IMPRESSION: NO ACUTE RADIOGRAPHIC FINDING IN THE CHEST. TECHNICAL DOCUMENTATION: JOB ID: [id number] [employer]- All Rights Reserved Reading location - IP/workstation name: [email or web address]
[2018-10-04 10:33] LABS: ABSOLUTE EOSINOPHILS # (AUTO) 0.1 10^3/uL (0.0-0.6); ABSOLUTE LYMPHOCYTES (AUTO) 1.7 10^3/uL (0.5-4.7); ABSOLUTE MONOCYTES (AUTO) 0.4 10^3/uL (0.1-1.4); ABSOLUTE NEUT (AUTO) 4.3 10^3/uL (1.7-8.2); BASOPHILS % (AUTO) 0.6 % (0-2); EOSINOPHILS % (AUTO) 1.1 % (0-6); HEMATOCRIT 38.5 % (36.0-47.0); HEMOGLOBIN 12.7 g/dL (12.0-15.5); LYMPHOCYTES % (AUTO) 25.5 % (13-45); MEAN CORPUSCULAR HEMOGLOBIN 27.6 pg (27.0-33.4); MEAN CORPUSCULAR VOLUME 84 fl (80-97); MONOCYTES % (AUTO) 6.8 % (3-13); PLATELET COUNT 276 10^3/uL (150-450); RED BLOOD COUNT 4.59 10^6/uL (3.72-5.28); RED CELL DISTRIBUTION WIDTH 15.5 % (11.5-14.0); TOTAL CELLS COUNTED % (AUTO) 100 %; WHITE BLOOD COUNT 6.6 10^3/uL (4.0-10.5)
[2018-10-04 11:07] LABS: APPEARANCE,URINE SLIGHTLY-CLOUDY; BILIRUBIN,URINE NEGATIVE (NEGATIVE); GLUCOSE, URINE NEGATIVE (NEGATIVE); KETONES,URINE NEGATIVE (NEGATIVE); LEUKOCYTE ESTERASE,URINE TRACE (NEGATIVE); NITRITE,URINE NEGATIVE (NEGATIVE); PROTEIN,URINE 100 mg/dL (NEGATIVE); URINE SPECIFIC GRAVITY 1.018; UROBILINOGEN,URINE NEGATIVE mg/dL (<2.0)
[2018-10-04 11:12] LABS: COLOR,URINE RED
--- NOTE | 2018-10-04 11:32 | EKG REPORT ---
SEVERITY:- NORMAL ECG - SINUS RHYTHM : Confirmed by: Ayesha Coretz MD 04-Oct-2018 11:31:23
[2018-10-04 11:53] LABS: ALANINE AMINOTRANSFERASE < 6 U/L (9-52); ALBUMIN 4.6 g/dL (3.5-5.0); ALKALINE PHOSPHATASE 83 U/L (38-126); ANION GAP 15 (5-19); ASPARTATE AMINO TRANSFERASE 26 U/L (14-36); BILIRUBIN,DIRECT 0.4 mg/dL (0.0-0.4); BILIRUBIN,TOTAL 0.6 mg/dL (0.2-1.3); BLOOD UREA NITROGEN 13 mg/dL (7-20); CALCIUM 9.4 mg/dL (8.4-10.2); CARBON DIOXIDE 21 mmol/L (22-30); CHLORIDE 114 mmol/L (98-107); GLUCOSE 92 mg/dL (75-110); POTASSIUM 4.7 mmol/L (3.6-5.0); SODIUM 150.1 mmol/L (137-145); TOTAL PROTEIN 9.1 g/dL (6.3-8.2)
[2018-10-04 12:56] VITALS: BP 131/90
== END 2018-10-04 12:57 | disposition home or self-care (01) ==
LOC: ER 08:37
DX: J02.9 Acute pharyngitis, unspecified (principal); R20.2 Paresthesia of skin; R07.89 Other chest pain; R35.0 Frequency of micturition; R30.0 Dysuria
CPT/HCPCS: 36415; 71045; 80053; 81001; 81025; 84484; 85025; 87086; 87088; 87186; 93005; 93010; 99285

== ENCOUNTER 2018-10-29 15:53 | Emergency (ER) | payer OTHER ==
--- NOTE | 2018-10-29 17:44 | ER Document Report ---
ED Flu Like - General Chief Complaint: Flu Symptoms Stated Complaint: FLU LIKE SYMPTOMS Time Seen by Provider: 10/29/18 17:27 Mode of Arrival: Ambulatory Information source: Patient Notes: 38-year-old female presents to ED for complaint of sore throat hoarse voice body aches runny nose right ear pain fever and chills on and off since she was seen on October 04. October 04 her chest x-ray and assessment was negative. She states she went from here to the primary care doctor who stated she had sinusitis and bronchitis and put her on antibiotics. She states she felt better for a while and then she became sick again. Patient is alert oriented respirations regular and unlabored speaking in full sentences. 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 Patient is not wheezing at this time her lungs are clear her blood pressure is high as it was on her last visit. TRAVEL OUTSIDE OF THE [place] IN LAST 30 DAYS: No - HPI Onset: Other - Off and on since September Timing/Duration: Intermittent Quality of pain: Achy - Body aches sore throat Severity: Moderate Pain Level: 4 Associated symptoms: Body/muscle aches, Chills, Nonproductive cough, Hoarseness, Rhinnorhea, Sinus pain/drainage, Sore throat Similar symptoms previously: Yes Recently seen / treated by doctor: Yes - Related Data Allergies/Adverse Reactions: Penicillins Allergy (Verified 10/04/18 08:39) Past Medical History - General Information source: Patient - Social History Smoking Status: Never Smoker Chew tobacco use (# tins/day): No Frequency of alcohol use: None Drug Abuse: None 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 Lives with: Family Family History: Reviewed & Not Pertinent Patient has suicidal ideation: No Patient has homicidal ideation: No - Past Medical History Cardiac Medical History: Reports: None Pulmonary Medical History: Reports: Hx Bronchitis EENT Medical History: Reports: None Neurological Medical History: Reports: None Endocrine Medical History: Reports: None Renal/ Medical History: Reports: None Malignancy Medical History: Reports: None GI Medical History: Reports: None Musculoskeletal Medical History: Reports None Skin Medical History: Reports None Psychiatric Medical History: Reports: None Traumatic Medical History: Reports: None Infectious Medical History: Reports: None Past Surgical History: Reports: Hx Cholecystectomy - Immunizations Immunizations up to date: Yes Hx Diphtheria, Pertussis, Tetanus Vaccination: Yes Review of Systems - Review of Systems Constitutional: Recent illness EENT: No symptoms reported, Nose congestion, Nose discharge, Sinus pressure, Sinus discharge, Other - Hoarseness Cardiovascular: No symptoms reported Respiratory: Cough Gastrointestinal: No symptoms reported Genitourinary: No symptoms reported Female Genitourinary: No symptoms reported Musculoskeletal: No symptoms reported Skin: No symptoms reported Hematologic/Lymphatic: No symptoms reported Neurological/Psychological: No symptoms reported -: Yes All other systems reviewed and negative Physical Exam - Vital signs Vitals: Temp Pulse Resp BP Pulse Ox 98.1 F 78 16 159/92 H 100 10/29/18 16:01 10/29/18 16:01 10/29/18 16:01 10/29/18 16:01 10/29/18 16:01 Interpretation: Hypertensive - General General appearance: Appears well, Alert - HEENT Head: Normocephalic, Atraumatic Eyes: Normal Pupils: PERRL Ears: Normal External canal: Normal Tympanic membrane: Normal Sinus: Normal Nasal: Purulent discharge, Swelling Mouth/Lips: Normal Mucous membranes: Normal Pharynx: Erythema, Post nasal drainage. No: Exudate, Tonsillar hypertrophy Neck: Normal - Respiratory Respiratory status: No respiratory distress Chest status: Nontender Breath sounds: Nonproductive cough. No: Productive cough, Rales, Rhonchi, Stridor, Wheezing Chest palpation: Normal - Cardiovascular Rhythm: Regular Heart sounds: Normal auscultation Murmur: No - Abdominal Inspection: Normal Distension: No distension Bowel sounds: Normal Tenderness: Nontender Organomegaly: No organomegaly - Back Back: Normal, Nontender - Extremities General upper extremity: Normal inspection, Nontender, Normal color, Normal ROM, Normal temperature General lower extremity: Normal inspection, Nontender, Normal color, Normal ROM, Normal temperature, Normal weight bearing. No: Annel's sign - Neurological Neuro grossly intact: Yes Cognition: Normal Orientation: AAOx4 [place] Coma Scale Eye Opening: Spontaneous [place] Coma Scale Verbal: Oriented Geraldine Coma Scale Motor: Obeys Commands [place] Coma Scale Total: 15 Speech: Normal Motor strength normal: LUE, RUE, LLE, RLE Sensory: Normal - Psychological Associated symptoms: Normal affect, Normal mood - Skin Skin Temperature: Warm Skin Moisture: Dry Skin Color: Normal Course - Re-evaluation Re-evalutation: 10/29/18 21:01 Assessment was consistent with upper respiratory infection. Patient was insistent that she came here in September with similar symptoms and was discharged home and then followed up with her primary doctor who put on antibiotics for her bronchitis. I reviewed the records from her last visit and her chest x-ray was negative as well as her CBC. I did repeat a chest x-ray today due to her insistence that she had pneumonia even though her lungs were clear and respirations were regular and unlabored. The chest x-ray was negative for any acute changes. Her strep test was negative. Patient was discharged home with recommendations for an upper respiratory infection. After performing a Medical Screening Examination, I estimate there is LOW risk for ACUTE CORONARY SYNDROME, RESPIRATORY FAILURE, SEPSIS OR MENINGITIS, thus I consider the discharge disposition reasonable. I have reevaluated this patient multiple times and no significant life threatening changes are noted. The patient and I have discussed the diagnosis and risks, and we agree with discharging home with close follow-up. We also discussed returning to the Emergency Department immediately if new or worsening symptoms occur. We have discussed the symptoms which are most concerning (e.g., changing or worsening pain, trouble swallowing or breathing, neck stiffness, fever) that necessitate immediate return. - Vital Signs Vital signs: Temp Pulse Resp BP Pulse Ox 98.0 F 79 16 148/92 H 100 10/29/18 19:21 10/29/18 19:21 10/29/18 19:21 10/29/18 19:21 10/29/18 19:21 - Diagnostic Test Radiology reviewed: Image reviewed, Reports reviewed Discharge - Discharge Clinical Impression: URI (upper respiratory infection) Qualifiers: URI type: unspecified URI Qualified Code(s): J06.9 - Acute upper respiratory infection, unspecified Condition: Stable Disposition: HOME, SELF-CARE Additional Instructions: UPPER RESPIRATORY ILLNESS: You have a viral infection of the respiratory passages -- a "cold." This common infection causes nasal congestion, drainage, and often sore throat and cough. It is highly contagious. The disease usually lasts about 10 to 14 days. There is no "cure" for the viral infection -- it must run its course. If there is a complication, such as bacterial infection in the nose, sinuses, middle ear, or bronchial tubes, antibiotics may be required. The antibiotics won't affect the virus. Drink plenty of fluids. A humidifier may help. An expectorant medication or decongestant may make you more comfortable. Use acetaminophen or ibuprofen for fever or aches. See the doctor if fever persists over two days, if there is any significant worsening of your symptoms, or if you simply fail to improve as expected. COUGH-SUPPRESSANT & EXPECTORANT MEDICATION: You are to use a cough medication as needed for relief of symptoms. This medicine is a combination of an expectorant (to make the mucous thinner and more easily "coughed up") and a cough suppressant (to reduce the frequency of coughing). The cough-suppressant medicine is related to narcotics. You may experience mild nausea and sleepiness. Some patients who are very sensitive to narcotics may have stomach pain from this medicine. Taking the medicine with food reduces these side effects. Do not drive or work with machinery until you know how this medicine affects you. The expectorant should have no side effects. Iodine-containing expectorants (such as organidin) should not be taken by persons with active thyroid disease unless approved by your doctor. Call the doctor if you develop shortness of breath, hives, rash, itching, lightheadedness, or severe nausea and vomiting. USE OF ACETAMINOPHEN (Tylenol): Acetaminophen may be taken for pain relief or fever control. It's much safer than aspirin, offering a wider range of "safe" dosages. It is safe during . Some brand names are Tylenol, Panadol, Datril, Anacin 3, Tempra, and Liquiprin. Acetaminophen can be repeated every four hours. The following are maximum recommended dosages: >89 pounds or adults 650 mg to 900 mg Acetaminophen can be repeated every four hours. Maximum dose not to exceed 4000 mg a day. You can try Chloraseptic spray, salt and soda solution gargles, and Flonase for your cough cold congestion and sore throat. Your strep is negative. Your chest x-ray is negative. I will give you a copy of these to take with you to your primary doctor. Salt and soda solution Salt and soda solution 1 quart of water 1 tablespoon of salt 1 teaspoon of baking soda Mixed 3 ingredients together and boil for 1 minute Placed in a covered quart jar Use 1/2 ounce of cold solution to gargle 3 times a day FOLLOW-UP CARE: If you have been referred to a physician for follow-up care, call the physicians office for an appointment as you were instructed or within the next two days. If you experience worsening or a significant change in your symptoms, notify the physician immediately or return to the Emergency Department at any time for re-evaluation. Forms: Elevated Blood Pressure, Return to Work Referrals: LUCIANO MONIQUE NP [Primary Care Provider] - Follow up as needed
--- NOTE | 2018-10-29 18:11 | RADIOLOGY REPORT (SQ) ---
EXAM DESCRIPTION: CHEST 2 VIEWS COMPLETED DATE/TIME: 10/29/2018 5:48 pm REASON FOR STUDY: cough congestion COMPARISON: 10/04/2018 EXAM PARAMETERS: NUMBER OF VIEWS: two views TECHNIQUE: Digital Frontal and Lateral radiographic views of the chest acquired. RADIATION DOSE: NA LIMITATIONS: none FINDINGS: LUNGS AND PLEURA: No opacities, masses or pneumothorax. No pleural effusion. MEDIASTINUM AND HILAR STRUCTURES: No masses or contour abnormalities. HEART AND VASCULAR STRUCTURES: Heart normal size. No evidence for failure. BONES: No acute findings. HARDWARE: None in the chest. OTHER: No other significant finding. IMPRESSION: NO ACUTE RADIOGRAPHIC FINDING IN THE CHEST. TECHNICAL DOCUMENTATION: JOB ID: [id number] [employer]- All Rights Reserved Reading location - IP/workstation name: [email or web address]
[2018-10-29 19:25] VITALS: BP 148/92
== END 2018-10-29 19:27 | disposition home or self-care (01) ==
LOC: ER 15:53
DX: J06.9 Acute upper respiratory infection, unspecified (principal); I10 Essential (primary) hypertension; J02.9 Acute pharyngitis, unspecified; R49.0 Dysphonia; R09.89 Other specified symptoms and signs involving the circulatory and respiratory systems; H92.01 Otalgia, right ear; M79.10 Myalgia, unspecified site; J34.89 Other specified disorders of nose and nasal sinuses; R68.83 Chills (without fever); R05 Cough; R09.81 Nasal congestion; R09.82 Postnasal drip; Z88.0 Allergy status to penicillin
CPT/HCPCS: 71046; 87070; 87077; 87880; 99284

== ENCOUNTER → 2018-12-21 | Outpatient (CLI) | payer OTHER ==
[2018-12-21 10:49] LABS: A TYPE INFLUENZA AG NEGATIVE (NEGATIVE); B INFLUENZA AG NEGATIVE (NEGATIVE)
== END ==
LOC: OD 09:40
PROVIDERS: ATTEND Obstetrics & Gynecology
DX: Z11.59 Encounter for screening for other viral diseases (principal)
CPT/HCPCS: 87804

== ENCOUNTER → 2019-01-19 | Outpatient (CLI) | payer OTHER ==
--- NOTE | 2019-01-19 15:07 | RADIOLOGY REPORT (SQ) ---
EXAM DESCRIPTION: CHEST 2 VIEWS COMPLETED DATE/TIME: 01/19/2019 1:20 pm REASON FOR STUDY: SOB,EDEMA COMPARISON: Two-view chest 10/29/2018 EXAM PARAMETERS: NUMBER OF VIEWS: two views TECHNIQUE: Digital Frontal and Lateral radiographic views of the chest acquired. RADIATION DOSE: NA LIMITATIONS: none FINDINGS: LUNGS AND PLEURA: No opacities, masses or pneumothorax. No pleural effusion. MEDIASTINUM AND HILAR STRUCTURES: No masses or contour abnormalities. HEART AND VASCULAR STRUCTURES: Heart normal size. No evidence for failure. BONES: No acute findings. HARDWARE: Clips right upper quadrant post cholecystectomy OTHER: No other significant finding. IMPRESSION: NO ACUTE RADIOGRAPHIC FINDING IN THE CHEST. TECHNICAL DOCUMENTATION: JOB ID: [id number] [employer]- All Rights Reserved Reading location - IP/workstation name: [email or web address]
== END ==
LOC: RAD 12:55
PROVIDERS: ATTEND Family Medicine
DX: R06.02 Shortness of breath (principal); R60.9 Edema, unspecified
CPT/HCPCS: 71046

== ENCOUNTER → 2019-01-25 | Outpatient (CLI) | payer OTHER ==
--- NOTE | 2019-01-25 15:47 | RADIOLOGY REPORT (SQ) ---
EXAM DESCRIPTION: VENOUS BILATERAL LOWER COMPLETED DATE/TIME: 01/25/2019 3:26 pm REASON FOR STUDY: EDEMA R60.9 EDEMA, UNSPECIFIED R06.00 DYSPNEA, UNSPECIFIED COMPARISON: None. TECHNIQUE: Dynamic and static nowak scale and color images acquired of both lower extremity venous sy stems. Selected spectral images acquired with additional compression and augmentation maneuvers. Imag es stored on PACS. LIMITATIONS: None. FINDINGS: RIGHT LEG COMMON FEMORAL AND FEMORAL: Normal phasicity, compression and augmentation. No visualized echogenic m aterial on nowak scale. No defects on color images. POPLITEAL: Normal compression and augmentation. No visualized echogenic material on nowak scale. No de fects on color images. CALF VESSELS: Normal compression and augmentation. No visualized echogenic material on nowak scale. No defects on color image. GSV AND SSV: Normal compression. No visualized echogenic material on nowak scale. No defects on color images. ANY DEEP VENOUS INSUFFICIENCY: Not evaluated. ANY EVIDENCE OF POPLITEAL CYST: No. OTHER: No other significant finding. LEFT LEG COMMON FEMORAL AND FEMORAL: Normal phasicity, compression and augmentation. No visualized echogenic m aterial on nowak scale. No defects on color images. POPLITEAL: Normal compression and augmentation. No visualized echogenic material on nowak scale. No de fects on color images. CALF VESSELS: Normal compression and augmentation. No visualized echogenic material on nowak scale. No defects on color images. GSV AND SSV: Normal compression. No visualized echogenic material on nowak scale. No defects on color images. ANY DEEP VENOUS INSUFFICIENCY: Not evaluated. ANY EVIDENCE POPLITEAL CYST: No. OTHER: No other significant finding. IMPRESSION: NO EVIDENCE DVT OR SVT IN EITHER LEG. TECHNICAL DOCUMENTATION: JOB ID: [id number] [employer]- All Rights Reserved Reading location - IP/workstation name: [email or web address]
== END ==
LOC: SP 14:17
PROVIDERS: ATTEND Family Medicine
DX: R60.9 Edema, unspecified (principal); R06.00 Dyspnea, unspecified
CPT/HCPCS: 93970

== ENCOUNTER → 2019-02-01 | Outpatient (CLI) | payer OTHER | LOC: RAD 01-31 13:32 | PROVIDERS: ATTEND Family Medicine | DX: R79.1 Abnormal coagulation profile (principal); R07.9 Chest pain, unspecified; R06.00 Dyspnea, unspecified; R06.9 Unspecified abnormalities of breathing | CPT/HCPCS: 82565 ==

== ENCOUNTER → 2019-05-10 | Day surgery (SDC) | payer BC, OTHER ==
[~2019-05-10] MED LIST changes: -ACETAMINOPHEN 1,000 MG/100 ML RTUPB IV ONE; -BUPIVACAINE HCL 0.5 % INJ/PF 30 ML SDV ONE; -DEXAMETHASONE SOD PHOSPHATE INJ 4 MG/1 ML VIAL ONE; -DEXMEDETOMIDINE INJ 80 MCG/20 ML VIAL IV ONE; -EPHEDRINE SULFATE INJ 50 MG/1 ML AMPULE ONE; -FENTANYL CITRATE INJ/PF 100 MCG/2 ML AMPUL ONE; -GLYCOPYRROLATE 1 MG/5 ML SYRINGE ONE; -KETOROLAC TROMETHAMINE 60 MG/2 ML SDV ONE; -LACTATED RINGERS 1000 ML IV PRN; -LIDOCAINE 0.5% INJ-PF (5 MG/ML) 50 ML SDV SUBCUT PRN; +LIDOCAINE 1% INJ-PF (10 MG/ML) 30 ML SDV ONE; -LIDOCAINE 2% INJ-PF (20 MG/ML) 10 ML AMPUL ONE; -METOCLOPRAMIDE HCL INJ/PF 10 MG/2 ML SDV ONE; -MIDAZOLAM 2 MG/2 ML INJ ONE; -NEOSTIGMINE METHYLSULFATE 10 MG/10 ML VIAL ONE; -ONDANSETRON HCL INJ/PF 4 MG/2 ML SDV ONE; -PROPOFOL INJ 200 MG/20 ML VIAL IV ONE; -ROCURONIUM BROMIDE INJ 50 MG/5 ML VIAL IV ONE; -SUCCINYLCHOLINE CHLORIDE INJ 200 MG/10 ML VIAL ONE
--- NOTE | 2019-05-10 09:44 | RADIOLOGY REPORT (SQ) ---
EXAM DESCRIPTION: U/S BIOPSY THYROID COMPLETED DATE/TIME: 05/10/2019 9:20 am REASON FOR STUDY: MULTINODULAR THYROID (E04.2) E04.2 NONTOXIC MULTINODULAR GOITER COMPARISON: None. TECHNIQUE: The procedure was discussed with the patient and written informed consent obtained. A ti meout was performed to confirm the procedure and patient's identity. The skin of the neck was preppe d and draped in sterile fashion and 10 cc of 1% lidocaine was administered for local anesthesia. Und er sonographic guidance, fine needle aspiration biopsy was performed of the mass in the right lobe of the thyroid. Two separate aspirations were performed. Hemostasis was obtained with direct manual compression. Th ere were no immediate complications. LIMITATIONS: None. FINDINGS: PATHOLOGY: Pending. IMPRESSION: ULTRASOUND-GUIDED BIOPSY PERFORMED OF A MASS IN THE RIGHT LOBE OF THE THYROID. PATHOLOG Y PENDING AT THE TIME OF DICTATION. COMMENT: Patient medication list reviewed: Yes- Quality ID# [id number]:Eligible professional attests to doc umenting in the medical record they obtained, updated, or reviewed the patient's current medications. TECHNICAL DOCUMENTATION: JOB ID: [id number] [employer]- All Rights Reserved Reading location - IP/workstation name: [email or web address]
== END ==
LOC: RAD 07:45
PROVIDERS: ATTEND Otolaryngology
DX: E04.2 Nontoxic multinodular goiter (principal)
CPT/HCPCS: 88173 ×2; 60100; J3490

== ENCOUNTER 2019-10-22 09:36 | Emergency (ER) | payer BC ==
--- NOTE | 2019-10-22 10:55 | ER Document Report ---
ED Medical Screen (RME) - General Chief Complaint: Pelvic Pain Stated Complaint: ABDOMINAL PAIN,ARM PAIN Time Seen by Provider: 10/22/19 10:47 Primary Care Provider: RIZWAN MUÑOZ MD [Primary Care Provider] - Follow up as needed TRAVEL OUTSIDE OF THE [place] IN LAST 30 DAYS: No - HPI Notes: 10/22/19 10:53 Patient is a 39-year-old female with a history of ovarian cyst who presents complaining of bilateral side pain to her abdomen that is been present for 1 year. Patient states that she has been evaluated by [employer] had a biopsy of her uterus performed this past Thursday. Patient states that she is also had left shoulder pain that radiates from her neck down into her shoulder and then down into her hand over the past couple weeks without precipitating event or injury. She has been to her local emergency department ([facility]) 2 weeks ago and again last night for her shoulder. No recent illness or fever. No chest pain, shortness of breath, dyspnea. I have treated and performed a rapid initial assessment of this patient. A comprehensive ED assessment and evaluation of the patient, analysis of test results and completion of medical decision making process will be conducted by additional ED providers. PHYSICAL EXAMINATION: GENERAL: Well-appearing, well-nourished and in no acute distress. A&Ox4. Answers questions appropriately. Left shoulder: + tenderness to palp left trapezius mm and with ROM to the shoulder. Abd: limited exam, will need further eval on bed. Grossly non-tender. - Related Data Allergies/Adverse Reactions: Penicillins Allergy (Verified 10/22/19 10:48) Past Medical History - Social History Chew tobacco use (# tins/day): No Frequency of alcohol use: None Drug Abuse: None Pulmonary Medical History: Reports: Hx Bronchitis Renal/ Medical History: Denies: Hx Peritoneal Dialysis Past Surgical History: Reports: Hx Cholecystectomy - Immunizations Immunizations up to date: Yes Hx Diphtheria, Pertussis, Tetanus Vaccination: Yes Physical Exam - Vital signs Vitals: Temp Pulse Resp BP Pulse Ox 98.2 F 75 18 155/93 H 99 10/22/19 09:42 10/22/19 09:42 10/22/19 09:42 10/22/19 09:42 10/22/19 09:42 Course - Vital Signs Vital signs: Temp Pulse Resp BP Pulse Ox 98.2 F 75 18 155/93 H 99 10/22/19 09:42 10/22/19 09:42 10/22/19 09:42 10/22/19 09:42 10/22/19 09:42 Doctor's Discharge - Discharge Referrals: RIZWAN MUÑOZ MD [Primary Care Provider] - Follow up as needed
[2019-10-22 11:54] LABS: APPEARANCE,URINE SLIGHTLY-CLOUDY; BILIRUBIN,URINE NEGATIVE (NEGATIVE); COLOR,URINE YELLOW; GLUCOSE, URINE NEGATIVE (NEGATIVE); KETONES,URINE NEGATIVE (NEGATIVE); PROTEIN,URINE NEGATIVE (NEGATIVE); UROBILINOGEN,URINE NEGATIVE mg/dL (<2.0)
[2019-10-22 12:24] LABS: ABSOLUTE EOSINOPHILS # (AUTO) 0.1 10^3/uL (0.0-0.6); ABSOLUTE NEUT (AUTO) 3.2 10^3/uL (1.7-8.2); MEAN CORPUSCULAR HEMOGLOBIN 28.1 pg (27.0-33.4); TOTAL CELLS COUNTED % (AUTO) 100 %
[2019-10-22 12:27] LABS: ABSOLUTE LYMPHOCYTES (AUTO) 2.1 10^3/uL (0.5-4.7); ABSOLUTE MONOCYTES (AUTO) 0.5 10^3/uL (0.1-1.4); BASOPHILS % (AUTO) 0.5 % (0-2); EOSINOPHILS % (AUTO) 2.2 % (0-6); HEMATOCRIT 37.9 % (36.0-47.0); HEMOGLOBIN 12.9 g/dL (12.0-15.5); LYMPHOCYTES % (AUTO) 35.3 % (13-45); MEAN CORPUSCULAR HGB CONC 33.9 g/dL (32.0-36.0); MEAN CORPUSCULAR VOLUME 83 fl (80-97); MONOCYTES % (AUTO) 8.8 % (3-13); PLATELET COUNT 290 10^3/uL (150-450); RED BLOOD COUNT 4.57 10^6/uL (3.72-5.28); RED CELL DISTRIBUTION WIDTH 14.7 % (11.5-14.0); SEGMENTED NEUTROPHILS % (AUTO) 53.2 % (42-78)
--- NOTE | 2019-10-22 12:40 | ER Document Report ---
ED GI/ - General Chief Complaint: Pelvic Pain Stated Complaint: ABDOMINAL PAIN,ARM PAIN Time Seen by Provider: 10/22/19 10:47 Primary Care Provider: JOJO ARRIAGA MD [ACTIVE STAFF] - Follow up as needed Notes: Patient is a 39-year-old female who presents emergency department with a chief complaint of left shoulder pain and pelvic pain. Patient reports she has had bilateral lower pelvic pain for about 1 year but is worsened over the past week. Patient reports that she was seen by her RN RECRUITMENT last Thursday and had a biopsy of her uterus. Patient reports she has not received these results yet. Patient reports she was supposed to have an ultrasound at that time but was told that the did not have room to place her on the schedule. Patient reports this does feel like her typical ovarian cyst pain is worse on the right. Patient reports she was placed on Provera as well to help with the ovarian cyst, her last dose was 1 week ago. Patient reports she has had intermittent brown vaginal discharge since being on the Provera and was told that this was normal. Patient denies fever. Patient denies nausea, vomiting or diarrhea. Patient reports her last menstrual cycle was September 14. Patient also complains of left shoulder pain. Patient reports she has been seen by her local emergency department twice for this. She states they did not do a x-ray but was told it was musculoskeletal in nature and was prescribed Robaxin. Patient was seen at the ER last night for this and has only taken 1 dose of Robaxin which was last night. Patient reports about 2 weeks ago she was lifting up her daughter she was attempting to run away and felt a jerking motion to the left shoulder. Patient reports since then she has had the left shoulder pain. This is worse with movement. Patient reports she does have full range of motion to the left shoulder although this does radiate into the left mid forearm. TRAVEL OUTSIDE OF THE [place] IN LAST 30 DAYS: No - Related Data Allergies/Adverse Reactions: Penicillins Allergy (Verified 10/22/19 10:48) Past Medical History - General Information source: Patient - Social History Smoking Status: Never Smoker Chew tobacco use (# tins/day): No Frequency of alcohol use: None Drug Abuse: None Lives with: Family, Spouse/Significant other Family History: Reviewed & Not Pertinent Patient has suicidal ideation: No Patient has homicidal ideation: No - Past Medical History Cardiac Medical History: Reports: None Pulmonary Medical History: Reports: Hx Bronchitis EENT Medical History: Reports: None Neurological Medical History: Reports: None Endocrine Medical History: Reports: None Renal/ Medical History: Reports: Hx Ovarian Cysts. Denies: Hx Peritoneal Dialysis Malignancy Medical History: Reports: None GI Medical History: Reports: None Musculoskeletal Medical History: Reports None Skin Medical History: Reports None Psychiatric Medical History: Reports: None Traumatic Medical History: Reports: None Infectious Medical History: Reports: None Past Surgical History: Reports: Hx Cholecystectomy - Immunizations Immunizations up to date: Yes Hx Diphtheria, Pertussis, Tetanus Vaccination: Yes Review of Systems - Review of Systems Constitutional: No symptoms reported EENT: No symptoms reported Cardiovascular: No symptoms reported Respiratory: No symptoms reported Gastrointestinal: See HPI Genitourinary: No symptoms reported Female Genitourinary: See HPI Musculoskeletal: No symptoms reported Skin: No symptoms reported Hematologic/Lymphatic: No symptoms reported Neurological/Psychological: No symptoms reported Physical Exam - Vital signs Vitals: Temp Pulse Resp BP Pulse Ox 98.2 F 75 18 155/93 H 99 10/22/19 09:42 10/22/19 09:42 10/22/19 09:42 10/22/19 09:42 10/22/19 09:42 Interpretation: Hypertensive - Notes Notes: GENERAL: Well-appearing, well-nourished and in no acute distress. HEAD: Atraumatic, normocephalic. EYES: Pupils equal round and reactive to light, extraocular movements intact, sclera anicteric, conjunctiva are normal. ENT: Nares patent, oropharynx clear without exudates. Moist mucous membranes. NECK: Normal range of motion, supple without lymphadenopathy or JVD. LUNGS: Breath sounds clear to auscultation bilaterally and equal. No wheezes rales or rhonchi. HEART: Regular rate and rhythm without murmurs, rubs or gallops. ABDOMEN: Soft, nontender, normoactive bowel sounds. No guarding, no rebound. No masses appreciated. BACK: No cervical, thoracic, lumbar midline tenderness. No saddle anesthesia, normal distal neurovascular exam. GENITOURINARY: Deferred. EXTREMITIES: Normal range of motion, no pitting or edema. No clubbing or cyanosis. Patient has point tenderness to the left trapezius muscle. There is no point bony tenderness. Patient does have full range of motion to the left shoulder. Patient does report pain to the left upper arm with movement of the left shoulder. NEUROLOGICAL: Cranial nerves II through XII grossly intact. Normal speech, normal gait. PSYCH: Normal mood, normal affect. SKIN: Warm, Dry, normal turgor, no rashes or lesions noted. Course - Re-evaluation Re-evalutation: 10/22/19 12:40 We will obtain an ultrasound, pelvic examination and left shoulder x-ray. I did offer the patient a Toradol injection as well as another dose of Robaxin as she has not had 1 since last night. Patient reports she would like to hold off on receiving any medication at this time. Patient instructed ultimately to follow- up with her RN RECRUITMENT and to call them on Thursday. 10/22/19 12:54 Patient reports that she did tell her RN RECRUITMENT that she had been having a fishy odor to her vaginal discharge for a few weeks. She reports that they did not test this to her knowledge. Patient reports after developing the fishy odor and discharge she has been douching frequently. - Vital Signs Vital signs: Temp Pulse Resp BP Pulse Ox 98.8 F 76 14 135/86 H 99 10/22/19 15:26 10/22/19 15:26 10/22/19 15:26 10/22/19 15:26 10/22/19 15:26 - Laboratory Result Diagrams: 10/22/19 12:13 10/22/19 12:13 Laboratory results interpreted by me: 10/22/19 10/22/19 10:55 12:13 RDW 14.7 H Urine Ascorbic Acid 40 H 10/22/19 15:57 Patient's lab work did not show significant leukocytosis or anemia. Patient's electrolytes and kidney function are within normal limits. Patient urinalysis unremarkable. Patient negative for gonorrhea and chlamydia. Patient does have 3+ bacteria. Laboratory 10/22/19 10/22/19 10/22/19 10:55 12:13 12:13 WBC 6.0 RBC 4.57 Hgb 12.9 Hct 37.9 MCV 83 MCH 28.1 MCHC 33.9 RDW 14.7 H Plt Count 290 Lymph % (Auto) 35.3 [place] % (Auto) 8.8 Eos % (Auto) 2.2 Baso % (Auto) 0.5 Absolute Neuts (auto) 3.2 Absolute Lymphs (auto) 2.1 Absolute Monos (auto) 0.5 Absolute Eos (auto) 0.1 Absolute Basos (auto) 0.0 Seg Neutrophils % 53.2 Sodium 143.3 Potassium 4.3 Chloride 105 Carbon Dioxide 27 Anion Gap 11 BUN 12 Creatinine 0.73 Est GFR ( Amer) > 60 Est GFR (MDRD) Non-Af > 60 Glucose 91 Calcium 9.2 Total Bilirubin 0.4 Direct Bilirubin 0.3 Neonat Total Bilirubin Not Reportable Neonat Direct Bilirubin Not Reportable Neonat Indirect Bili Not Reportable AST 16 ALT 9 Alkaline Phosphatase 79 Total Protein 8.1 Albumin 4.2 Lipase 37.8 Urine Color YELLOW Urine Appearance SLIGHTLY-CLOUDY Urine pH 5.0 Ur Specific [place] 1.020 Urine Protein NEGATIVE Urine Glucose (UA) NEGATIVE Urine Ketones NEGATIVE Urine Blood NEGATIVE Urine Nitrite (Reflex) NEGATIVE Urine Bilirubin NEGATIVE Urine Urobilinogen NEGATIVE Leukocyte Esterase Rfl NEGATIVE Urine RBC (Auto) 0 Urine WBC (Reflex) 2 Squamous Epi Cells Auto 7 Urine Mucus (Auto) OCC Urine Ascorbic Acid 40 H Urine HCG, Qual NEGATIVE Epi Cells (Wet Prep) Bacteria (Wet Prep) Trichomonas (Wet Prep) Vaginal WBC Vaginal RBC Vaginal Yeast Chlamydia DNA (PCR) N.gonorrhoeae DNA (PCR) 10/22/19 10/22/19 12:45 12:45 WBC RBC Hgb Hct MCV MCH MCHC RDW Plt Count Lymph % (Auto) [place] % (Auto) Eos % (Auto) Baso % (Auto) Absolute Neuts (auto) Absolute Lymphs (auto) Absolute Monos (auto) Absolute Eos (auto) Absolute Basos (auto) Seg Neutrophils % Sodium Potassium Chloride Carbon Dioxide Anion Gap BUN Creatinine Est GFR ( Amer) Est GFR (MDRD) Non-Af Glucose Calcium Total Bilirubin Direct Bilirubin Neonat Total Bilirubin Neonat Direct Bilirubin Neonat Indirect Bili AST ALT Alkaline Phosphatase Total Protein Albumin Lipase Urine Color Urine Appearance Urine pH Ur Specific [place] Urine Protein Urine Glucose (UA) Urine Ketones Urine Blood Urine Nitrite (Reflex) Urine Bilirubin Urine Urobilinogen Leukocyte Esterase Rfl Urine RBC (Auto) Urine WBC (Reflex) Squamous Epi Cells Auto Urine Mucus (Auto) Urine Ascorbic Acid Urine HCG, Qual Epi Cells (Wet Prep) Bacteria (Wet Prep) 3+ BACTERIA SEEN Trichomonas (Wet Prep) NO TRICHOMONAS SEEN Vaginal WBC RARE WBCS SEEN Vaginal RBC NO RBCS SEEN Vaginal Yeast NO YEAST SEEN Chlamydia DNA (PCR) NOT DETECTED N.gonorrhoeae DNA (PCR) NOT DETECTED Procedures - Pelvic Exam Pelvic exam Time completed: 12:45 Cultures obtained: Yes Wet prep obtained: Yes Foreign body removed: No Witnessed by: Jacquelyn BARCENAS Notes: 10/22/19 12:52 External genitalia unremarkable without edema, discharge or erythema. No lesions noted. Patient tolerated the insertion of the speculum well. I was able to visualize the cervix. There was no bleeding noted within the vaginal vault or around the cervix. There was a moderate amount of thick beige-colored discharge. No pain induced with movement of the speculum. Specimen sent to lab. Discharge - Discharge Clinical Impression: Pelvic pain, Bacterial vaginosis Left shoulder pain Qualifiers: Chronicity: acute Qualified Code(s): M25.512 - Pain in left shoulder Ovarian cyst Qualifiers: Laterality: bilateral Qualified Code(s): N83.201 - Unspecified ovarian cyst, right side Condition: Stable Disposition: HOME, SELF-CARE Additional Instructions: *Today was seen in the emergency department for pelvic pain. It does note on her ultrasound that you do have small ovarian cyst on both sides. It also does suggest that you may have pelvic congestion. I have printed you a copy of your ultrasound read. Please take this to Dr. Arriaga and call his office on Thursday to make a follow-up appointment. You also have bacterial vaginosis. I will treat this with Flagyl. Do not drink alcohol while on Flagyl as it can make you extremely sick. Over the weekend please return to the emergency department if you have any increase in pain, you become faint or experience any vaginal bleeding. You also been diagnosed with a left muscular strain of the shoulder. Your x-ray was negative for any bony abnormality. Please continue taking anti- inflammatories such as ibuprofen or Motrin as well as the Robaxin that was prescribed to you. You can use warm compresses to the area as well. Ovarian Cyst Your examination shows the presence of an ovarian cyst. This is a ball of fluid attached to the ovary. Ovarian cysts in women of child-bearing age are usually innocent. However, the cyst may cause pain when it grows or bursts. An innocent ovarian cyst will usually go away by itself. When the cyst becomes painful, you should rest. Pain medication may be required. Some women find a hot water bottle soothing. The pain usually resolves within one or two days. After menopause, an ovarian cyst may mean a tumor, and requires more aggressive evaluation -- usually surgery is recommended to remove or biopsy the cyst. A very large cyst requires evaluation at any age. Most cysts (even the innocent ones) require follow-up examination. Call the doctor or return at any time if the pain increases significantly, if you become faint, or if you experience vaginal bleeding. Vaginosis, Bacterial Your exam shows you have bacterial vaginosis. This condition is due to an overgrowth of bacteria in the vagina. Symptoms may include vaginal itching or pain, a smelly discharge, and sometimes burning with urination. Normally this is not transmitted by sexual contact. Vaginosis can be treated with oral or topical antibiotics. Metronidazole (Flagyl) pills are usually effective. Topical vaginal creams include Cleocin and Metro-Gel. You should avoid sexual contact until your symptoms are all better. Call the doctor if you develop pelvic pain, fever, or problems with urination, or if you don't improve as expected. Prescriptions: Metronidazole [Flagyl 500 mg Tablet] 500 mg PO BID 7 Days #14 tablet Referrals: JOJO ARRIAGA MD [ACTIVE STAFF] - Follow up as needed
[2019-10-22 12:42] LABS: ALBUMIN 4.2 g/dL (3.5-5.0); ALKALINE PHOSPHATASE 79 U/L (38-126); ANION GAP 11 (5-19); ASPARTATE AMINO TRANSFERASE 16 U/L (14-36); BILIRUBIN,DIRECT 0.3 mg/dL (0.0-0.4); BILIRUBIN,TOTAL 0.4 mg/dL (0.2-1.3); BLOOD UREA NITROGEN 12 mg/dL (7-20); CALCIUM 9.2 mg/dL (8.4-10.2); CARBON DIOXIDE 27 mmol/L (22-30); CHLORIDE 105 mmol/L (98-107); GLUCOSE 91 mg/dL (75-110); POTASSIUM 4.3 mmol/L (3.6-5.0); TOTAL PROTEIN 8.1 g/dL (6.3-8.2)
[2019-10-22 12:58] LABS: T.VAGINALIS (WET MOUNT) NO TRICHOMONAS SEEN
[2019-10-22 12:59] LABS: BACTERIA (WET MOUNT) 3+ BACTERIA SEEN; RBCS (WET MOUNT) NO RBCS SEEN; WBCS (WET MOUNT) RARE WBCS SEEN; YEAST (WET MOUNT) NO YEAST SEEN
--- NOTE | 2019-10-22 13:10 | RADIOLOGY REPORT (SQ) ---
EXAM DESCRIPTION: SHOULDER LEFT 2 OR MORE VIEWS COMPLETED DATE/TIME: 10/22/2019 12:59 pm REASON FOR STUDY: left shoulder pain after picking up daughter [id number] COMPARISON: None. NUMBER OF VIEWS: Three views left shoulder LIMITATIONS: None. FINDINGS: There is no acute or significant bone, joint or soft tissue abnormality. OTHER: No other significant finding. IMPRESSION: NORMAL STUDY. TECHNICAL DOCUMENTATION: JOB ID: [id number] Reading location - IP/workstation name: [email or web address]
[2019-10-22 14:30] LABS: CHLAM PCR NOT DETECTED (NOT DETECT)
--- NOTE | 2019-10-22 15:06 | RADIOLOGY REPORT (SQ) ---
EXAM DESCRIPTION: U/S NON OB PEL W/DOPPLER COMPLETED DATE/TIME: 10/22/2019 2:44 pm REASON FOR STUDY: bilateral pelvic pain, hx. ovarian cyst COMPARISON: None. TECHNIQUE: Dynamic and static grayscale images acquired of the pelvis via transabdominal and transva ginal approach and recorded on PACS. Additional selected color Doppler and spectral images recorded. LIMITATIONS: None. FINDINGS: UTERUS: Contour normal. No mass. ENDOMETRIAL STRIPE: No focal or generalized thickening. No masses. CERVIX: No nabothian cysts. RIGHT OVARY AND DOPPLER: Normal size. No worrisome masses. Cyst or follicle measuring 1.4 cm. Arter ial and venous Doppler flow is present bilaterally. LEFT OVARY AND DOPPLER: Normal size. No worrisome masses. Cyst or follicle measuring 1.1 cm. Arter ial and venous Doppler flow is present bilaterally. FREE FLUID: None noted. OTHER: Enlarged left adnexal vessels. MEASUREMENTS: UTERUS: 7.3 x 3.9 x 5.1 cm ENDOMETRIAL STRIPE: 11 mm RIGHT OVARY: 2.4 x 2.4 x 2.3 cm LEFT OVARY: 2.1 x 1.8 x 1.7 cm IMPRESSION: 1. Normal size and appearance of the bilateral ovaries, containing small cysts or folli cles measuring up to 1.4 cm. Arterial and venous Doppler flow is present bilaterally. 2. Enlarged left adnexal vessels, which can be seen in pelvic congestion syndrome. Correlate for re ferable chronic signs and symptoms if present. TECHNICAL DOCUMENTATION: JOB ID: [id number] [employer]- All Rights Reserved Rev Reading location - IP/workstation name: [email or web address]
[2019-10-22 15:29] VITALS: BP 135/86
== END 2019-10-22 15:30 | disposition home or self-care (01) ==
LOC: ER 09:36
DX: N83.201 Unspecified ovarian cyst, right side (principal); N76.0 Acute vaginitis; B96.89 Other specified bacterial agents as the cause of diseases classified elsewhere; M25.512 Pain in left shoulder; R10.2 Pelvic and perineal pain; R10.31 Right lower quadrant pain; R10.32 Left lower quadrant pain; Z79.899 Other long term (current) drug therapy
CPT/HCPCS: 36415; 76856; 80053; 81001; 81025; 83690; 85025; 87210; 87491; 87591; 93976; 99284

== ENCOUNTER 2020-04-05 07:20 | Day surgery (SDC) | payer BC ==
[2020-03-20 11:07] LABS: APPEARANCE,URINE CLEAR; BILIRUBIN,URINE NEGATIVE (NEGATIVE); COLOR,URINE YELLOW; GLUCOSE, URINE NEGATIVE (NEGATIVE); KETONES,URINE NEGATIVE (NEGATIVE); LEUKOCYTE ESTERASE,URINE NEGATIVE (NEGATIVE); NITRITE,URINE NEGATIVE (NEGATIVE); PROTEIN,URINE NEGATIVE (NEGATIVE); URINE SPECIFIC GRAVITY 1.018; UROBILINOGEN,URINE NEGATIVE mg/dL (<2.0)
[2020-03-20 11:08] LABS: HEMATOCRIT 36.7 % (36.0-47.0); HEMOGLOBIN 12.4 g/dL (12.0-15.5); MEAN CORPUSCULAR HGB CONC 33.8 g/dL (32.0-36.0); MEAN CORPUSCULAR VOLUME 83 fl (80-97); PLATELET COUNT 300 10^3/uL (150-450); RED BLOOD COUNT 4.43 10^6/uL (3.72-5.28); RED CELL DISTRIBUTION WIDTH 14.5 % (11.5-14.0); WHITE BLOOD COUNT 5.9 10^3/uL (4.0-10.5)
[2020-03-20 11:31] LABS: ALBUMIN 4.3 g/dL (3.5-5.0); ALKALINE PHOSPHATASE 84 U/L (38-126); ANION GAP 9 (5-19); ASPARTATE AMINO TRANSFERASE 20 U/L (14-36); BILIRUBIN,TOTAL 0.3 mg/dL (0.2-1.3); BLOOD UREA NITROGEN 12 mg/dL (7-20); CALCIUM 9.3 mg/dL (8.4-10.2); CARBON DIOXIDE 25 mmol/L (22-30); CHLORIDE 105 mmol/L (98-107); GLUCOSE 95 mg/dL (75-110); POTASSIUM 4.4 mmol/L (3.6-5.0); TOTAL PROTEIN 8.1 g/dL (6.3-8.2)
--- NOTE | 2020-03-20 18:16 | EKG REPORT ---
SEVERITY:- NORMAL ECG - SINUS RHYTHM : Confirmed by: Mart Fernando MD 20-Mar-2020 18:15:29
[~2020-04-05 07:20] MED LIST changes: +CEFAZOLIN 2 GM/D5W RTU 2 GM/50 ML RTUPB IV PRN; +FENTANYL CITRATE INJ/PF 100 MCG/2 ML AMPUL ONE; +HYDROMORPHONE HCL INJ/PF 2 MG/ML AMPULE ONE; +LACTATED RINGERS 1000 ML IV PRN; -LIDOCAINE 1% INJ-PF (10 MG/ML) 30 ML SDV ONE; +MIDAZOLAM 2 MG/2 ML INJ ONE; +PROPOFOL INJ 200 MG/20 ML VIAL IV ONE
[2020-04-05] MEDS ORDERED: CEFAZOLIN 2 GM/D5W RTU 2 GM/50 ML RTUPB IV ONE (07:53)
--- NOTE | 2020-04-05 08:31 | RADIOLOGY REPORT (SQ) ---
EXAM DESCRIPTION: CHEST SINGLE VIEW IMAGES COMPLETED DATE/TIME: 04/05/2020 8:07 am REASON FOR STUDY: pre op COMPARISON: 01/19/2019 EXAM PARAMETERS: NUMBER OF VIEWS: One view. TECHNIQUE: Single frontal radiographic view of the chest acquired. RADIATION DOSE: NA LIMITATIONS: None. FINDINGS: LUNGS AND PLEURA: No opacities, masses or pneumothorax. No pleural effusion. MEDIASTINUM AND HILAR STRUCTURES: No masses. Contour normal. HEART AND VASCULAR STRUCTURES: Cardiomegaly, stable appearance. Normal vasculature. BONES: No acute findings. HARDWARE: None in the chest. OTHER: No other significant finding. IMPRESSION: 1. No significant interval changes since the prior examination dated 01/19/2019. No acu te pulmonary findings. TECHNICAL DOCUMENTATION: JOB ID: [id number] [employer]- All Rights Reserved Reading location - IP/workstation name: [email or web address]
[2020-04-05] MEDS ORDERED: CLINDAMYCIN 900 MG/D5W RTU 900 MG/50 ML RTUPB IV ONE (08:33)
[2020-04-05] MEDS ORDERED: CLINDAMYCIN 900 MG/D5W RTU 900 MG/50 ML RTUPB IV PRN (09:23)
[2020-04-05] MEDS ORDERED: BUPIVACAINE HCL 0.25 % INJ/PF (2.5 MG/1 ML) 30 ML VIAL ONE (10:23)
[2020-04-05] MEDS ORDERED: DIPHENHYDRAMINE HCL 50 MG/ML VIAL IV PRN (10:59)
[2020-04-05] MEDS ORDERED: FENTANYL CITRATE INJ/PF 100 MCG/2 ML AMPUL IV PRN ×3 (10:59)
[2020-04-05] MEDS ORDERED: MEPERIDINE HCL/PF INJ 25 MG/1 ML DISP.SYRIN IV PRN (10:59)
[2020-04-05] MEDS ORDERED: MORPHINE SULFATE 10 MG/ML INJ IV PRN ×2 (10:59→12:46)
[2020-04-05] MEDS ORDERED: PROMETHAZINE HCL INJ 25 MG/1 ML VIAL IV PRN (10:59)
[2020-04-05] MEDS ORDERED: ONDANSETRON HCL INJ/PF 4 MG/2 ML SDV IV PRN (10:59)
--- NOTE | 2020-04-05 12:24 | Operative Report ---
Operative Report DATE OF SURGERY: 04/05/20 PREOPERATIVE DIAGNOSIS: Pelvic pain dysmenorrhea endometriosis POSTOPERATIVE DIAGNOSIS: Same OPERATION: Robotic assisted total vaginal hysterectomy BSO now SURGEON: CEFERINO BERNSTEIN ANESTHESIA: GA TISSUE REMOVED OR ALTERED: Uterus tubes ovaries ESTIMATED BLOOD LOSS: Less than 100 cc PROCEDURE: Patient placed in a dorsal lithotomy position prepped draped sterile fashion. A speculum placed cervix visualized and grasped with a single-tooth tenaculum the V care was then placed per protocol. Speculum was removed. Attention turned to the abdomen where a supraumbilical incision was made trocar was reduced with insufflation of the abdomen and visualization of the pelvis. A second puncture was made lateral to the first on the left and a 5 trocar was reduced third made laterally on the right and a 5 introduced and a fourth superior iliac crest and a central port was placed. Robot was docked in usual fashion. Using monopolar and bipolar cautery the left infundibulopelvic identified divided distally continued down the broad ligament to the ascending branch of the uterine artery on the left. Procedure was to be on the right. The bladder flap was created with sharp dissection. Uterus tubes and ovaries then removed via sharp circumscribing the vaginal mucosa using monopolar cautery. The uterus tube and ovary were removed from the abdominal cavity through the vagina. Cuff was closed running suture of 0 Vicryl. There was irrigated with normal saline hemostasis was noted. The robot was undocked and the abdomen deflated and trocar sleeves were removed. The supraumbilical and accessory port fascia closed with 0 Vicryl skin was closed with subcu 4-0 Vicryl. Patient tolerated procedure well to recovery in good condition.
[2020-04-05] MEDS ORDERED: ONDANSETRON HCL 8 MG TABLET PO PRN (12:45)
[2020-04-05] MEDS ORDERED: OXYCODONE-ACETAMINOPHEN 5-325 MG TABLET PO PRN (12:45)
[2020-04-05] MEDS ORDERED: KETOROLAC TROMETHAMINE 60 MG/2 ML SDV ONE (14:53)
[2020-04-05] MEDS ORDERED: GLYCOPYRROLATE 1 MG/5 ML VIAL ONE (14:53)
[2020-04-05] MEDS ORDERED: DEXAMETHASONE SOD PHOSPHATE INJ 4 MG/1 ML VIAL ONE (14:53)
[2020-04-05] MEDS ORDERED: NEOSTIGMINE METHYLSULFATE 10 MG/10 ML VIAL ONE (14:53)
[2020-04-05] MEDS ORDERED: ROCURONIUM BROMIDE INJ 50 MG/5 ML VIAL IV ONE (14:53)
[2020-04-05] MEDS ORDERED: ONDANSETRON HCL INJ/PF 4 MG/2 ML SDV ONE (14:53)
[2020-04-05] MEDS: IBUPROFEN 800 MG TABLET PO SCH ×2 (15:09→22:12)
[2020-04-06] MEDS: IBUPROFEN 800 MG TABLET PO SCH ×2 (05:03→13:20)
[2020-04-06] MEDS ORDERED: ESTRADIOL 1 MG PO SCH (10:00)
--- NOTE | 2020-04-06 10:28 | PDOC DISCHARGE SUMMARY ---
Impression - Admit/DC Date/PCP Admission Date/Primary Care Provider: RIZWAN MÑUOZ MD Discharge Date: 04/06/20 - Discharge Diagnosis (1) Pelvic pain Is this a current diagnosis for this admission?: Yes (2) Dysmenorrhea Is this a current diagnosis for this admission?: Yes (3) Endometriosis Is this a current diagnosis for this admission?: Yes - Additional Information Resuscitation Status: Full Code Discharge Activity: Activity As Tolerated, No Lifting/Push/Pulling, Pelvic Rest, Slowly Increase Activity, No tub bath, Walk Frequently Referrals: CEFERINO BERNSTEIN MD [ACTIVE STAFF] - 04/11/20 9:30 am (CALL THE OFFICE FOR ANY QUESTIONS AND CONCERNS.) RIZWAN MUÑOZ MD [Primary Care Provider] - Prescriptions: Estradiol 1 mg PO DAILY 90 Days #90 tablet Ibuprofen [Ibu] 800 mg PO TID 30 Days #90 tablet Oxycodone HCl/Acetaminophen [Percocet 5-325 mg Tablet] 1 tab PO Q6H PRN 7 Days #28 tab PRN Reason: Home Medications: Acetaminophen [Tylenol Arthritis] 650 mg PO PRN PRN 03/20/20 Estradiol 1 mg PO DAILY 90 Days #90 tablet 04/05/20 Ibuprofen [Ibu] 800 mg PO TID 30 Days #90 tablet 04/05/20 Oxycodone HCl/Acetaminophen [Percocet 5-325 mg Tablet] 1 tab PO Q6H PRN 7 Days # 28 tab 04/05/20 History of Present Illiness History of Present Illness: MICHELLE ARREGUIN is a 40 year old female Hospital Course Hospital Course: post op benign pt ambulating and tolerating regular diet Physical Exam - Physical Exam Vital Signs: Temp Pulse Resp BP Pulse Ox 98.1 F 76 18 128/72 H 98 04/06/20 08:22 04/06/20 08:22 04/06/20 08:22 04/06/20 08:22 04/06/20 08:22 Intake & Output 04/05/20 04/06/20 04/07/20 06:59 06:59 06:59 Intake Total 3950 Output Total 1550 500 Balance 2400 -500 Weight 122.036 kg General appearance: PRESENT: no acute distress Respiratory exam: PRESENT: clear to auscultation rd Cardiovascular exam: PRESENT: RRR - incisions clean no signs of infection Results Laboratory Results: WBC 5.9 10^3/uL (4.0-10.5) 03/20/20 10:20 RBC 4.43 10^6/uL (3.72-5.28) 03/20/20 10:20 Hgb 12.4 g/dL (12.0-15.5) 03/20/20 10:20 Hct 36.7 % (36.0-47.0) 03/20/20 10:20 MCV 83 fl (80-97) 03/20/20 10:20 MCH 28.0 pg (27.0-33.4) 03/20/20 10:20 MCHC 33.8 g/dL (32.0-36.0) 03/20/20 10:20 RDW 14.5 % (11.5-14.0) H 03/20/20 10:20 Plt Count 300 10^3/uL (150-450) 03/20/20 10:20 Sodium 139.1 mmol/L (137-145) 03/20/20 10:20 Potassium 4.4 mmol/L (3.6-5.0) 03/20/20 10:20 Chloride 105 mmol/L (98-107) 03/20/20 10:20 Carbon Dioxide 25 mmol/L (22-30) 03/20/20 10:20 Anion Gap 9 (5-19) 03/20/20 10:20 BUN 12 mg/dL (7-20) 03/20/20 10:20 Creatinine 0.64 mg/dL (0.52-1.25) 03/20/20 10:20 Est GFR ( Amer) > 60 (>60) 03/20/20 10:20 Est GFR (MDRD) Non-Af > 60 (>60) 03/20/20 10:20 Glucose 95 mg/dL (75-110) 03/20/20 10:20 Calcium 9.3 mg/dL (8.4-10.2) 03/20/20 10:20 Total Bilirubin 0.3 mg/dL (0.2-1.3) 03/20/20 10:20 Direct Bilirubin 0.0 mg/dL (0.0-0.4) 03/20/20 10:20 Neonat Total Bilirubin Not Reportable 03/20/20 10:20 Neonat Direct Bilirubin Not Reportable 03/20/20 10:20 Neonat Indirect Bili Not Reportable 03/20/20 10:20 AST 20 U/L (14-36) 03/20/20 10:20 ALT 10 U/L (<35) 03/20/20 10:20 Alkaline Phosphatase 84 U/L (38-126) 03/20/20 10:20 Total Protein 8.1 g/dL (6.3-8.2) 03/20/20 10:20 Albumin 4.3 g/dL (3.5-5.0) 03/20/20 10:20 Urine Color YELLOW 03/20/20 10:30 Urine Appearance CLEAR 03/20/20 10:30 Urine pH 5.0 (5.0-9.0) 03/20/20 10:[address] 1.018 03/20/20 10:30 Urine Protein NEGATIVE mg/dL (NEGATIVE) 03/20/20 10:30 Urine Glucose (UA) NEGATIVE mg/dL (NEGATIVE) 03/20/20 10:30 Urine Ketones NEGATIVE mg/dL (NEGATIVE) 03/20/20 10:30 Urine Blood NEGATIVE (NEGATIVE) 03/20/20 10:30 Urine Nitrite NEGATIVE (NEGATIVE) 03/20/20 10:30 Urine Bilirubin NEGATIVE (NEGATIVE) 03/20/20 10:30 Urine Urobilinogen NEGATIVE mg/dL (<2.0) 03/20/20 10:30 Ur Leukocyte Esterase NEGATIVE (NEGATIVE) 03/20/20 10:30 Urine WBC (Auto) 0 /HPF 03/20/20 10:30 Squamous Epi Cells Auto 2 /HPF 03/20/20 10:30 Urine Mucus (Auto) FEW /LPF 03/20/20 10:30 Urine Ascorbic Acid NEGATIVE (NEGATIVE) 03/20/20 10:30 Urine HCG, Qual NEGATIVE (NEGATIVE) 04/05/20 07:25 COVID-19 Source NASOPHARYNGEAL 03/30/20 10:45 COVID-19 (CAROL) NOT DETECTED 03/30/20 10:45 Blood Type O POSITIVE 03/30/20 10:30 Antibody Screen NEGATIVE 03/30/20 10:30 Impressions: Chest X-Ray 04/05/20 00:00 IMPRESSION: 1. No significant interval changes since the prior examination dated 01/19/2019. No acute pulmonary findings. Plan Time Spent: Less than 30 Minutes Stroke Is this a Stroke Patient?: No Acute Heart Failure - Is this a Heart Failure Patient?: No
[2020-04-06] MEDS ORDERED: BISACODYL 10 MG SUPP.RECT PR ONE (11:00)
[2020-04-06 11:19] VITALS: BP 134/86
== END 2020-04-06 13:25 | disposition home or self-care (01) ==
LOC: OROUT 07:20 → 2N 14:35 → OROUT 04-06 13:25
PROVIDERS: ATTEND Obstetrics & Gynecology Gynecology
DX: N83.01 Follicular cyst of right ovary (principal); N83.12 Corpus luteum cyst of left ovary; R10.2 Pelvic and perineal pain; N94.6 Dysmenorrhea, unspecified; N80.9 Endometriosis, unspecified; Z30.2 Encounter for sterilization; Z88.0 Allergy status to penicillin; Z03.818 Encounter for observation for suspected exposure to other biological agents ruled out; I10 Essential (primary) hypertension; E66.9 Obesity, unspecified; Z79.899 Other long term (current) drug therapy; B00.9 Herpesviral infection, unspecified
CPT/HCPCS: 93005; 86900; 86901; 36415 ×2; 86850; 85027; 87635; 81025; 80053; 81001; 88307 ×2; 71045; 93010; 58552; J2250; J3490 ×3; J1100; J1885; J2710; J1170; J2405; J2704; J0690; C9803; S2900; 840; J3010

== ENCOUNTER 2020-04-08 19:54 | Emergency (ER) | payer BC ==
--- NOTE | 2020-04-08 20:48 | ER Document Report ---
ED Medical Screen (RME) - General Chief Complaint: Leg Swelling Stated Complaint: RIGHT LEG PAIN, LIGHTHEADED Time Seen by Provider: 04/08/20 20:46 Primary Care Provider: RIZWAN MUÑOZ MD [Primary Care Provider] - Follow up as needed Mode of Arrival: Ambulatory Information source: Patient Notes: 40-year-old female presents to ED for complaint of bilateral feet swelling with some pain to the right leg. She states she had a hysterectomy on and her feet started swelling today. He states she also has a headache today but has no facial droop no palmar no confusion. We will get blood work and venous Doppler. Patient is alert oriented respirations regular and unlabored speaking in full sentences. She states she feels much better than she has in a while. She states she called the [facility] and they told her to come to the emergency room for Dopplers to rule out blood clots. I have greeted and performed a rapid initial assessment of this patient. A comprehensive ED assessment and evaluation of the patient, analysis of test results and completion of medical decision making process will be conducted by an additional ED providers. TRAVEL OUTSIDE OF THE [place] IN LAST 30 DAYS: No - Related Data Allergies/Adverse Reactions: Penicillins Allergy (Verified 04/08/20 20:31) Home Medications: complete Past Medical History - Social History Frequency of alcohol use: None Drug Abuse: None - Past Medical History Cardiac Medical History: Denies: Hx Coronary Artery Disease, Hx Heart Attack, Hx Hypertension - HIGH WITH ONLY Pulmonary Medical History: Denies: Hx Asthma, Hx Bronchitis, Hx COPD, Hx Pneumonia Neurological Medical History: Denies: Hx Cerebrovascular Accident, Hx Seizures Renal/ Medical History: Reports: Hx Ovarian Cysts. Denies: Hx Peritoneal Dialysis Musculoskeltal Medical History: Denies Hx Arthritis Past Surgical History: Reports: Hx Cholecystectomy - Immunizations Immunizations up to date: Yes Hx Diphtheria, Pertussis, Tetanus Vaccination: Yes Physical Exam - Vital signs Vitals: Temp Pulse Resp BP Pulse Ox 99.1 F 93 20 151/97 H 98 04/08/20 20:06 04/08/20 20:06 04/08/20 20:06 04/08/20 20:06 04/08/20 20:06 Course - Vital Signs Vital signs: Temp Pulse Resp BP Pulse Ox 99.1 F 93 20 151/97 H 98 04/08/20 20:39 04/08/20 20:06 04/08/20 20:06 04/08/20 20:06 04/08/20 20:06 Doctor's Discharge - Discharge Referrals: RIZWAN MUÑOZ MD [Primary Care Provider] - Follow up as needed
[2020-04-08 23:23] VITALS: BP 153/94
--- NOTE | 2020-04-08 23:55 | RADIOLOGY REPORT (SQ) ---
EXAM DESCRIPTION: Bilateral lower extremity venous duplex exam CLINICAL HISTORY: 40 years Female; Hysterectomy feet started swelling today TECHNIQUE: Multiple grayscale sonographic images of both legs were obtained utilizing a high-frequency linear array transducer supplemented with color Doppler, compression and augmentation techniques. COMPARISON: None. FINDINGS: Right leg veins: Normal compression and augmentation is identified from the level of the common femoral vein to the calf veins. Normal color flow and spectral waveforms. No edema. No popliteal cyst calf veins are difficult to see because of leg swelling. Left leg veins: Normal compression and augmentation is identified from the level of the common femoral vein to the calf veins. Normal color flow and spectral waveforms. No edema. No popliteal cyst calf veins are difficult to visualize because of leg swelling IMPRESSION: No sonographic evidence for lower extremity deep venous thrombosis in either leg.
--- NOTE | 2020-04-09 00:59 | ER Document Report ---
Doctor's Note Notes: 04/09/20 00:58 Attempted to see patient, she was not the department. I was alerted by triage nurse that she has eloped. I did not see the patient.
== END 2020-04-09 00:22 | disposition left against medical advice (07) ==
LOC: ER 19:54
DX: M79.89 Other specified soft tissue disorders (principal); M79.604 Pain in right leg; R51 Headache; Z88.0 Allergy status to penicillin; Z53.29 Procedure and treatment not carried out because of patient's decision for other reasons
CPT/HCPCS: 93970; 99281

== ENCOUNTER → 2020-11-20 | Outpatient (CLI) | payer BC ==
--- NOTE | 2020-11-20 15:53 | RADIOLOGY REPORT (SQ) ---
EXAM DESCRIPTION: U/S RETROPERITON (RENAL/AORTA) IMAGES COMPLETED DATE/TIME: 11/20/2020 3:29 pm REASON FOR STUDY: LOW BACK PAIN/PELVIC AND PERINEAL PAIN/LOW BACK PAIN R10.2 PELVIC AND PERINEAL PA IN M54.5 LOW BACK PAIN COMPARISON: None. TECHNIQUE: Dynamic and static grayscale images acquired of the kidneys and bladder and recorded on P ACS. Additional selected color Doppler and spectral images recorded. LIMITATIONS: None. FINDINGS: RIGHT KIDNEY: Normal size. Normal echogenicity. No solid or suspicious masses. No hydronep hrosis. Possible small calculi. LEFT KIDNEY: Normal size. Normal echogenicity. 3 cm cortical cyst. No solid or suspicious masses. No hydronephrosis. Possible small calculi. BLADDER: No masses. OTHER FINDINGS: No other significant finding. IMPRESSION: POSSIBLE SMALL NONOBSTRUCTING CALCULI IN BOTH KIDNEYS. CORTICAL CYST IN THE LEFT KIDNEY . NO HYDRONEPHROSIS. TECHNICAL DOCUMENTATION: JOB ID: [id number] [employer]- All Rights Reserved Reading location - IP/workstation name: [email or web address]
== END ==
LOC: RAD 14:39
PROVIDERS: ATTEND Obstetrics & Gynecology Gynecology
DX: M54.5 Low back pain (principal); R10.2 Pelvic and perineal pain
CPT/HCPCS: 76770